=== PATIENT | male | born 1975 | race Caucasian/White ===

== ENCOUNTER 2023-05-29 17:01 | Emergency (ER) | payer BC, SELFPAY ==
[2023-05-29 17:04] VITALS: BP 146/97; PULSE 100; RESP 18; TEMP 36.8; O2SAT 96
--- NOTE | 2023-05-29 17:25 | EDS_ITS ---
HPI HPI - Psych History of Present Illness Chief Complaint: Suicidal Detail of Chief Complaint: Patient openly admits he had about 12 beers today. 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 Denies any prior suicide attempts. Denies any prior mental health admissions. States that he openly admits that he had 12 beers today. Said he got mouthy with his . They got an argument. He threatened to harm himself. She called the police. I did speak to our police crime scene technician who spoke with the police today. The patient left out the part that he had a loaded gun pointed at his own head. Patient was brought in by police and pink slipped. Prior similar symptoms: No Recent Illness/Hospitalization: No PFSH PFSH Medical History Anxiety HTN (hypertension) Home Medications bupropion HCl 300 mg 24 hr tablet, extended release 300 mg PO DAILY 05/29/23 [History Last Taken Unknown] lisinopril 20 mg-hydrochlorothiazide 12.5 mg tablet 1 tab PO DAILY 05/29/23 [History Last Taken 05/29/23] meloxicam .ROUTE 05/29/23 [History Last Taken 05/29/23] Allergy/AdvReac Type Severity Reaction Status Date / Time No Known Allergies Allergy Verified 05/29/23 17:11 Social History Smoking Status: Current every day smoker tobacco type: cigarettes ROS ROS ED ROS Narrative Denies recent illness. Review of Systems ROS Unobtainable: Denies due to encephalopathy Constitutional Constitutional ED: Denies chills or fever(s) Eyes Eyes: Denies blurry vision ENT ENT ED: Denies ear pain Cardiovascular Cardiovascular: Denies chest pain Respiratory/Chest Respiratory/Chest: Denies cough Gastrointestinal Gastrointestinal: Denies abdominal pain Genitourinary Genitourinary ED: Denies dysuria Musculoskeletal Musculoskeletal: Denies arthralgias Integumentary Denies abscess Neurologic Neurologic: Denies headache(s) Endocrine Endocrinology: Denies polydipsia Hematologic/Lymphatic Hematologic/Lymphatic: Denies easy bleeding Allergic/Immunologic Allergic/Immunologic ED: Denies mouth swelling EXAM Physical Exam Narrative Exam Narrative: 47-year-old male vital signs stable afebrile. He does not look septic or toxic. He is in no distress. Most likely is intoxicated. H EENT exam unremarkable. Neck nontender. No trauma. No lymphadenopathy. Lungs clear to auscultation bilaterally. Heart regular rhythm no murmur. Rate about 100. Chest wall nontender. Abdomen soft nontender. Moving all 4 extremities. Nontender. No trauma. No track kelley. No lacerations. Back nontender. Neurologically is awake and alert. Answering questions following commands. Currently he is neither verbally abusive nor confrontational. He is not threatening. Const Vital Signs: 05/29/23 17:04 05/29/23 19:02 Temperature 98.3 F Temperature Source Oral Pulse Rate 100 Respiratory Rate 18 18 Blood Pressure 146/97 H Blood Pressure Mean 113 Pulse Ox 96 Oxygen Delivery Method Room Air Room Air Positive well nourished and well developed; Negative for cachectic, contractures or unkempt General Appearance ED: well developed and NAD; Negative for unkempt, cachectic, contractures or pallor Nutritional Appearance: Negative for cachectic HEENT Reports moist mucous membranes normocephalic and atraumatic; Negative for trauma or tenderness Eyes PERRL and EOMs intact bilaterally General Eye ED: Negative for pale conjunctiva or scleral icterus Neck no lymphadenopathy, supple and no JVD General: Negative for tenderness Resp normal respiratory effort and clear to auscultation bilaterally Effort and Inspection: Negative for retractions Auscultation: Negative for rales, rhonchi, wheezes or diminished lung sounds Cardio S1 normal heart sound, S2 normal heart sound and no murmurs Palpation: Negative for other Rate: regular rate Rhythm: regular rhythm GI non-tender, non-distended and no masses Auscultation: normoactive bowel sounds Palpation: soft; Negative for tender or guarding Back/Spine no CVA tenderness General Back: Negative for CVA tenderness Cervical Spine: Negative for cervical spine tenderness Thoracic Spine / Upper Back: Negative for thoracic spinal tenderness Lumbar Spine / Lower Back: Negative for lumbar spinal tenderness Coccyx: Negative for other Extremity normal to inspection General Extremety ED: Negative for edema or tenderness General Extremity: Negative for edema Neuro oriented x3 and CN's II-XII intact bilaterally Sensorium / Orientation: alert, oriented to person, oriented to place and oriented to time; Negative for orientation impaired, confused, lethargic or sabrina porous Motor Exam: strength 5/5 throughout Psych mental status grossly normal, cooperative, affect normal and speech normal Appearance: grossly normal; Negative for unkempt Attitude: calm, engaged, No paranoid, No withdrawn, No bizarre, No uncooperative, No evasive, No guarded, No belligerent, No agitated, No aggressive and No hostile Activity / Motor Behavior: appropriate eye contact Speech: normal speech Mood & Affect: euthymic mood Thought Process: normal thought process Thought Content: normal thought content Attention / Concentration: attention grossly intact Memory / Cognition: memory grossly intact Insight: insight good Judgement: judgement good Skin General Skin Exam: Negative for jaundice or pallor Lesions: no lesions Rashes: no rashes Trauma: Negative for abrasion Wounds: Negative for amputation MDM MDM MDM Narrative Medical decision making narrative: 47-year-old male drinking today and pointed a loaded gun to his own head. His brought in by police under pink slip. He will go through a ED mental health evaluation. Repeat exam patient doing well at 7:39 PM. The alcohol level at the come down he will remain in the emergency department overnight. He will be assessed by crisis tomorrow. History & Record Review Discussion w/independent historian: Patient Lab Data Attestation: I reviewed the patient's lab results. Lab results narrative: CBC shows a white count 5.6. H&H of 14 and 40. Platelets 222. Electrolytes show sodium 133. Gap of 8. Normal BUN of 12 and creatinine 0.7. Glucose 101. Tox screen is positive only for cannabis. Blood alcohol level is 302. Labs: Laboratory Results - last 24 hr 05/29/23 18:01 WBC 5.6 RBC 4.55 L Hgb 14.3 Hct 40.4 MCV 88.8 MCH 31.4 MCHC 35.4 RDW Std Deviation 42.0 RDW Coeff of Gloria 12.8 Plt Count 222 MPV 8.4 Immature Gran % (Auto) 0.200 Neut % (Auto) 54.4 Lymph % (Auto) 34.8 [place] % (Auto) 7.1 Eos % (Auto) 2.3 Baso % (Auto) 1.2 H Absolute Neuts (auto) 3.1 Absolute Lymphs (auto) 1.96 Nucleated RBC % 0 Sodium 133 L Potassium 4.0 Chloride 100 Carbon Dioxide 25.0 Anion Gap 8 BUN 12 Creatinine 0.77 Est GFR (MDRD) Af Amer 138 Est GFR (MDRD) Non-Af 114 BUN/Creatinine Ratio 15.6 Glucose 101 Calcium 9.0 Urine Opiates Screen NEGATIVE Urine Methadone Screen NEGATIVE Ur Barbiturates Screen NEGATIVE Ur Phencyclidine Scrn NEGATIVE Ur Amphetamines Screen NEGATIVE MDMA (Ecstasy) Screen NEGATIVE U Benzodiazepines Scrn NEGATIVE Urine Cocaine Screen NEGATIVE U Cannabinoids Screen POSITIVE H Ur Drug Screen Comment Ethyl Alcohol 302.0 H* Discharge Plan Triage Chief Complaint: Suicidal ED Provider: Joey Shepard Dx/Rx/DC Orders Clinical Impression: Depression with suicidal ideation, Depression, History of hypertension Prescriptions: No Action lisinopril-hydrochlorothiazide 20-12.5 mg tablet 1 tab PO DAILY bupropion HCl 300 mg tablet extended release 24 hr 300 mg PO DAILY meloxicam .ROUTE Primary Care Provider: Gustavo Flor Referrals: Gustavo Flor MD [Primary Care Provider] -
[2023-05-29 18:09] LABS: Absolute Lymphocyte Count 1.96 X10^3/uL (0.83-4.51); Absolute Neutrophil Count 3.1 X10^3/uL (2.0-7.7); Basophil# 0.07 X10^3/uL; Basophil% 1.2 % (0-1); Eosinophil# 0.13 X10^3/uL; Eosinophils% 2.3 % (0-5); Hematocrit 40.4 % (40-54); Hemoglobin 14.3 g/dL (13.0-16.5); Lymphocyte # 1.96 X10^3/ul (0.83-4.51); Lymphocyte % 34.8 % (19-41); Mean Corp Hgb Conc 35.4 g/dL (32-36); Mean Corpuscular Hgb 31.4 pg (27.0-32.0); Mean Corpuscular Volume 88.8 fL (80-94); Mean Platelet Vol. 8.4 fl (6.2-12.0); Monocyte% 7.1 % (0-10); NRBC Flagged by Analyzer 0 % (0-5); Neutrophil # 3.07 X10^3/uL (2.7-7.7); Neutrophil % 54.4 % (47-70); Platelet Count 222 K/mm3 (150-450); RBC Distribution Width CV 12.8 % (11.6-14.6); Red Blood Count 4.55 M/mm3 (4.6-6.2); White Blood Count 5.6 K/mm3 (4.4-11.0)
[2023-05-29 18:32] LABS: Amphetamine Urine VISTA NEGATIVE (<1000 ng/mL); Barbiturate Urine VISTA NEGATIVE (< 200 ng/mL); Benzodiazepine Urine VISTA NEGATIVE (< 200 ng/mL); Cocaine Urine VISTA NEGATIVE (< 300 ng/mL); Ecstacy Urine VISTA NEGATIVE (< 500 ng/mL); Methadone Urine VISTA NEGATIVE (< 300 ng/mL); PCP Urine VISTA NEGATIVE (< 25 ng/mL); THC Urine VISTA POSITIVE (< 50 ng/mL); Vista UDS pH Range 6
[2023-05-29 18:43] LABS: Anion Gap 8 (5-15); BUN 12 mg/dL (7-18); BUN/Creat Ratio 15.6 RATIO (10-20); Chloride 100 mmol/L (98-107); Creatinine, Serum 0.77 mg/dL (0.70-1.30); EST Glomerular Filtration Rate 114 mL/min (>60); Est Glom Filt Rate - Afr Amer 138 mL/min (>60); Glucose 101 mg/dL (74-106); Sodium Level 133 mmol/L (136-145)
[2023-05-29 19:02] VITALS: RESP 18
[2023-05-29 20:00] VITALS: RESP 16
[2023-05-29 21:00] VITALS: RESP 16
[2023-05-29 22:00] VITALS: RESP 16
[2023-05-29 23:00] VITALS: RESP 16
[2023-05-30] VITALS (7 sets, daily range): BP systolic 135–139; BP diastolic 99–100; PULSE 96–100; RESP 14–18; O2SAT 98–99; BMI 32.3
== END 2023-05-30 10:50 | disposition home or self-care (01) ==
PROVIDERS: Emergency Provider Emergency Medicine; PCP Family Medicine; Visit Provider Emergency Medicine
DX: F32.A Depression, unspecified (principal); R45.851 Suicidal ideations; I10 Essential (primary) hypertension; F41.9 Anxiety disorder, unspecified; F10.10 Alcohol abuse, uncomplicated; Y90.8 Blood alcohol level of 240 mg/100 ml or more; F17.210 Nicotine dependence, cigarettes, uncomplicated; Z79.899 Other long term (current) drug therapy
CPT/HCPCS: 80048; 80307; 82077; 85025; 99285

== ENCOUNTER 2023-08-18 05:29 | Emergency (ER) | payer BC, SELFPAY ==
[2023-08-18 05:30] VITALS: BP 184/104; PULSE 94; RESP 15; TEMP 36; O2SAT 98; BMI 34.2
--- NOTE | 2023-08-18 06:10 | CT_ITS ---
EXAM: CT ABDOMEN AND PELVIS WITH INTRAVENOUS CONTRAST CLINICAL INDICATION: abdominal trauma-RIGHT POSTERIOR RIB PAIN FROM FALL 1 WEEK AGO TECHNIQUE: Helically acquired images were obtained of the abdomen and pelvis with intravenous contrast. This CT exam was performed using one or more of the following dose reduction techniques: automated exposure control, adjustment of the mA and/or kV according to patient size, and/or use of iterative reconstruction technique. CONTRAST: IV 100mL Isovue-300 RADIATION DOSE: CTDIvol = 15.34 mGy, DLP = 1423.21 mGy-cm. COMPARISON: No relevant prior studies available. FINDINGS: LOWER THORAX: See below. ABDOMEN: LIVER: Low-attenuation mildly fatty-appearing liver, the right lobe is mildly enlarged at 19.3 cm in length. GALLBLADDER AND BILE DUCTS: Unremarkable. No calcified gallstones. No gallbladder distention or wall edema. No intra- or extrahepatic biliary ductal dilation. PANCREAS: Unremarkable. No focal cystic or solid mass. SPLEEN: Unremarkable. Normal size without focal cystic or solid mass. ADRENALS: Unremarkable. No nodules. KIDNEYS AND URETERS: Unremarkable. Normal renal size and position. No hydronephrosis. STOMACH AND BOWEL: Mild gas stomach. Mildly prominent gas and fluid in small bowel loops. Moderate stool in the right colon and hepatic flexure. Minimal gas and collapse segments involving transverse colon. Mild gas and stool in the distal colon. No stomach or bowel distention. No focal inflammatory change. PELVIS: APPENDIX: No evidence of acute appendicitis. BLADDER: Mildly thick-walled urinary bladder but it is minimally distended. REPRODUCTIVE: Unremarkable as visualized. No mass. ABDOMEN and PELVIS: INTRAPERITONEAL SPACE: Unremarkable. No ascites or other fluid collection. No free air. BONES/JOINTS: Minimally displaced fractures of right posterior eighth through 10th posterior ribs are included with mild adjacent pleural thickening and minimal slightly hyperdense fluid. No pneumothorax anteriorly at the lung bases. Normal heart size. Degenerative spine changes decreased height and irregular anterior-superior margin at L3 with a sclerotic horizontal line the upper anterior to mid body, presumably subacute chronic fracture. No significant retropulsion or spinal stenosis. SOFT TISSUES: Unremarkable. No discrete abdominal or pelvic wall hernia. VASCULATURE: Unremarkable. Abdominal aorta is non-dilated. LYMPH NODES: Unremarkable. No enlarged lymph nodes. CT/Abdomen/Pelvis W IV Cont ONLY IMPRESSION: 1. Minimally displaced fractures of multiple right posterior ribs. Adjacent pleural thickening and slight suspected hemothorax. No pneumothorax of the lung bases. 2. No solid organ laceration or other specific acute intra-abdominal or intrapelvic abnormality. 3. Estimated subacute to chronic-appearing fracture of L3. Electronically Signed: Parisa Pedersen MD at 7:40 EDT ,
[2023-08-18 06:30] LABS: Absolute Lymphocyte Count 1.79 X10^3/uL (0.83-4.51); Absolute Neutrophil Count 2.9 X10^3/uL (2.0-7.7); Basophil# 0.06 X10^3/uL; Basophil% 1.1 % (0-1); Eosinophil# 0.19 X10^3/uL; Eosinophils% 3.4 % (0-5); Hematocrit 42.4 % (40-54); Hemoglobin 14.3 g/dL (13.0-16.5); Lymphocyte # 1.79 X10^3/ul (0.83-4.51); Lymphocyte % 31.9 % (19-41); Mean Corp Hgb Conc 33.7 g/dL (32-36); Mean Corpuscular Hgb 31.1 pg (27.0-32.0); Mean Corpuscular Volume 92.2 fL (80-94); Mean Platelet Vol. 8.4 fl (6.2-12.0); Monocyte# 0.63 X10^3/uL; Monocyte% 11.2 % (0-10); NRBC Flagged by Analyzer 0 % (0-5); Neutrophil # 2.93 X10^3/uL (2.7-7.7); Platelet Count 270 K/mm3 (150-450); RBC Distribution Width CV 12.4 % (11.6-14.6); RBC Distribution Width SD 41.9 fl (35.1-43.9); White Blood Count 5.6 K/mm3 (4.4-11.0)
--- NOTE | 2023-08-18 06:33 | EX.ED.GENINJ ---
HPI History of Present Illness Chief Complaint: Other, Pain/Inj Informant: patient Narrative Narrative: 47-year-old male presenting to the emergency room with right sided abdominal and chest wall pain in addition to constipation. Patient fell 1 week ago going on the stairs. He injured his right flank right mid axillary chest and abdomen. He states is progressively worsened. He notes for the past 3 days he has not had a very good bowel movement. He is took some Dulcolax with no relief. He denies any hematuria. He denies vomiting. He states the right mid axillary lower abdominal wall feels swollen. He notes pain over the anterior mid axillary lower right ribs. [facility] Medical History Anxiety HTN (hypertension) Home Medications bupropion HCl 300 mg 24 hr tablet, extended release 300 mg PO DAILY 05/29/23 [History Last Taken Unknown] lisinopril 20 mg-hydrochlorothiazide 12.5 mg tablet 1 tab PO DAILY 05/29/23 [History Last Taken 05/29/23] sour espinal extract 1,000 mg capsule (Tart Espinal Extract) 1,200 mg PO DAILY gout 05/30/23 [History Last Taken Unknown] oxycodone-acetaminophen 5 mg-325 mg tablet 1 tab PO Q6H PRN PRN Pain 3 days #12 TABLETS 08/18/23 [Rx Last Taken Unknown] Allergy/AdvReac Type Severity Reaction Status Date / Time No Known Allergies Allergy Verified 08/18/23 05:39 Social History Smoking Status: Current every day smoker tobacco type: cigarettes ROS ROS ED Constitutional Constitutional ED: Denies chills or weight loss Eyes Eyes: Denies change in vision or diplopia ENT ENT ED: Denies ear pain, rhinorrhea or sore throat Cardiovascular Cardiovascular: Reports chest pain; Denies orthopnea, palpitations or racing heartbeat Respiratory/Chest Respiratory/Chest: Denies cough, dyspnea or orthopnea Gastrointestinal Gastrointestinal: Reports abdominal pain and constipation; Denies diarrhea, nausea or vomiting Genitourinary Genitourinary ED: Denies dysuria, hematuria or urinary frequency Musculoskeletal Musculoskeletal: Reports back pain; Denies arthralgias or myalgias Integumentary Denies abscess or rash Neurologic Neurologic: Denies headache(s) or weakness Psychiatric Psychiatric: Denies anxiety, depression, suicidal ideation or suicidal thoughts Endocrine Endocrinology: Denies polydipsia, polyphagia or polyuria Allergic/Immunologic Allergic/Immunologic ED: Denies mouth swelling, tongue swelling or urticaria EXAM Physical Exam Const Vital Signs: 08/18/23 05:30 08/18/23 05:37 Temperature 96.8 F L Temperature Source Temporal Pulse Rate 94 Respiratory Rate 15 Respiratory Effort Normal Respiratory Pattern Normal Blood Pressure 184/104 H Blood Pressure Mean 130 Pulse Ox 98 Oxygen Delivery Method Room Air Positive well nourished and well developed General Appearance ED: well developed HEENT Reports normocephalic, head/scalp atraumatic and moist mucous membranes Eyes PERRL and EOMs intact bilaterally Neck no lymphadenopathy, supple and no JVD Chest Wall Chest Narrative: Patient has tenderness palpation over the lower right mid axillary ribs. There is no crepitance or deformity noted. No ecchymosis noted Resp normal respiratory effort and clear to auscultation bilaterally Cardio regular rate, regular rhythm and no murmurs GI GI Narrative: Is tender to palpation of the right side of the abdomen. I do not palpate any hematomas appreciated ecchymosis. Palpation: soft Back/Spine no CVA tenderness and normal ROM Back/Spine Narrative: Patient has tenderness to palpation in the right posterior thoracic ribs Extremity normal to inspection General Extremety ED: Negative for edema General Extremity: Negative for edema Neuro oriented x3 and CN's II-XII intact bilaterally Sensorium / Orientation: alert Motor Exam: strength 5/5 throughout Psych mental status grossly normal Mood & Affect: Negative for depressed or tearful Skin no rashes or lesions noted and no wounds MDM MDM MDM Narrative Medical decision making narrative: Basic blood work is neck due to. Also negative. CT of the abdomen pelvis demonstrates 3 rib fractures posteriorly on the right. There is no obvious pneumothorax liver or renal injury. There is also noted to be a subacute L3 fracture. Given that he has not had any recent falls other than one last week this is most likely related to the fall. Patient does not have a significant amount of stool. There are no inflammatory changes around the bowel. Patient was advised that he does not have a whole lot of stool but most of the stool is on the right side of his abdomen where he is feeling bloated. Patient should continue stool softener drink plenty of fluids. I would increase activity as pain dictates. He should trial some magnesium citrate if no bowel movement in 2 to 3 days. Return if worsening or concerns Lab Data Attestation: I reviewed the patient's lab results. Labs: Laboratory Results - last 24 hr 08/18/23 08/18/23 06:23 06:48 WBC 5.6 RBC 4.60 Hgb 14.3 Hct 42.4 MCV 92.2 MCH 31.1 MCHC 33.7 RDW Std Deviation 41.9 RDW Coeff of Gloria 12.4 Plt Count 270 MPV 8.4 Immature Gran % (Auto) 0.400 Neut % (Auto) 52.0 Lymph % (Auto) 31.9 [place] % (Auto) 11.2 H Eos % (Auto) 3.4 Baso % (Auto) 1.1 H Absolute Neuts (auto) 2.9 Absolute Lymphs (auto) 1.79 Nucleated RBC % 0 Sodium 134 L Potassium 4.3 Chloride 103 Carbon Dioxide 27.0 Anion Gap 4 L BUN 13 Creatinine 0.81 Estim Creat Clear Calc 117.49 Est GFR (MDRD) Af Amer 130 Est GFR (MDRD) Non-Af 108 BUN/Creatinine Ratio 16.1 Glucose 114 H Calcium 9.6 Total Bilirubin 0.30 AST 44 H ALT 63 H Alkaline Phosphatase 57 Total Protein 7.6 Albumin 3.8 Globulin 3.8 Albumin/Globulin Ratio 1.0 Urine Color Yellow Urine Clarity Clear Urine pH 6.5 Ur Specific [place] 1.010 Urine Protein Negative Urine Glucose (UA) Normal Urine Ketones Negative Urine Occult Blood Negative Urine Nitrite Negative Urine Bilirubin Negative Urine Urobilinogen Normal Ur Leukocyte Esterase Negative Urine RBC 0 SEEN Urine WBC 0 SEEN Ur Squamous Epith Cells 0 SEEN Urine Bacteria 0 SEEN Urine Mucus 0 SEEN Radiography Diagnostic Testing: Clinical Impression(s) from Imaging Studies Abdomen/Pelvis CT 08/18/23 06:10 IMPRESSION: 1. Minimally displaced fractures of multiple right posterior ribs. Adjacent pleural thickening and slight suspected hemothorax. No pneumothorax of the lung bases. 2. No solid organ laceration or other specific acute intra-abdominal or intrapelvic abnormality. 3. Estimated subacute to chronic-appearing fracture of L3. Electronically Signed: Parisa Pedersen MD at 7:40 EDT , Discharge Plan Triage Chief Complaint: Other, Pain/Inj ED Provider: Gustavo Foss Dx/Rx/DC Orders Clinical Impression: Multiple fractures of ribs of right side, Acute constipation, Closed L3 vertebral fracture, Fall Instructions: ED Constipation (Adult), ED Rib Fracture Prescriptions: New oxycodone-acetaminophen [oxycodone-acetaminophen] 5-325 mg tablet 1 tab PO Q6H PRN PRN (Reason: Pain) 3 Days Qty: 12 0RF No Action lisinopril-hydrochlorothiazide 20-12.5 mg tablet 1 tab PO DAILY bupropion HCl 300 mg tablet extended release 24 hr 300 mg PO DAILY Tart Espinal Extract 1,000 mg capsule 1,200 mg PO DAILY Primary Care Provider: Gustavo Flor Referrals: Gustavo Flor MD [Primary Care Provider] - As Needed Activity Restrictions/Additional Instructions: Continue taking the stool softener at least once or twice per day Drink plenty of fluids to stay hydrated (light yellow to clear urine) Activity will improve your constipation If no bowel movement in the next several days I would drink 1 or 2 bottles of magnesium citrate. Disposition Disposition: Home, Self Care
[2023-08-18 06:52] LABS: AST(SGOT) 44 U/L (15-37); Alanine Aminotransfer ALT/SGPT 63 U/L (16-61); Albumin, Serum 3.8 g/dL (3.2-5.0); Alkaline Phosphatase 57 U/L (45-117); Anion Gap 4 (5-15); BUN 13 mg/dL (7-18); BUN/Creat Ratio 16.1 RATIO (10-20); Calcium,Total 9.6 mg/dL (8.5-10.1); Chloride 103 mmol/L (98-107); Creatinine, Serum 0.81 mg/dL (0.70-1.30); EST Glomerular Filtration Rate 108 mL/min (>60); Est Glom Filt Rate - Afr Amer 130 mL/min (>60); Estimated Creatinine Clearance 117.49 ml/min; Globulin 3.8 g/dL (2.2-4.2); Glucose 114 mg/dL (74-106); Potassium 4.3 mmol/L (3.5-5.1); Protein, Total 7.6 g/dL (6.4-8.2); Sodium Level 134 mmol/L (136-145)
[2023-08-18 06:54] LABS: Bacteria 0 SEEN /hpf (None Seen); Color, Urine Yellow (Yellow); Glucose, Dipstick Normal (Normal); Ketone-Dipstick Negative (Negative); Leukocyte Esterase-Dipstick Negative /ul (Negative); Mucous, Urine 0 SEEN /hpf (<or=2+); Nitrite-Dipstick Negative (Negative); Occult Blood-Urine Negative /ul (Negative); Protein-Dipstick Negative (Negative); Red Blood Cells-Urine 0 SEEN /hpf (0-5); Squamous Epithelial Cells - UA 0 SEEN /hpf (0-5); Urine Bilirubin Dipstick Negative (Negative); Urine Clarity Clear (Clear); Urine Urobilinogen Normal (Normal); Urine pH 6.5 (5.0 - 8.0); White Blood Cells 0 SEEN /hpf (0-5)
[2023-08-18 07:55] VITALS: BP 108/77; PULSE 68; RESP 15; O2SAT 99
== END 2023-08-18 07:56 | disposition home or self-care (01) ==
PROVIDERS: Emergency Provider Emergency Medicine; PCP Family Medicine; Visit Provider Emergency Medicine
DX: S22.41XA Multiple fractures of ribs, right side, initial encounter for closed fracture (principal); S32.039A Unspecified fracture of third lumbar vertebra, initial encounter for closed fracture; W10.9XXA Fall (on) (from) unspecified stairs and steps, initial encounter; K59.00 Constipation, unspecified; I10 Essential (primary) hypertension; F17.210 Nicotine dependence, cigarettes, uncomplicated
CPT/HCPCS: 74177; 80053; 81001; 85025; 99282; Q9967; A4216

== ENCOUNTER 2025-07-13 04:45 | Emergency (ER) | payer BC, SELFPAY ==
[2025-07-13 04:46] VITALS: BP 165/102; PULSE 102; RESP 16; TEMP 36.9; O2SAT 99; BMI 38.7
[2025-07-13 04:48] VITALS: BP 165/102; PULSE 102; RESP 16; TEMP 36.9; O2SAT 99
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
--- OUTSIDE RECORDS SUMMARY | 2025-07-13 05:16 | XMS RPT_ITS | CCD ---
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 Normal >60 [facility] Comment on above: Result Comment: Afri can [place] GFR Calc Performed By: #### L 500.4050, L100.0100 #### [facility] [address] [place], [address] GAP 4 Low 5-15 [facility] Comment on above: Performed By: #### L 500.4050, L100.0100 #### [facility] [address] [place], [address] GFR/1.73 sq M.predicted among non-blacks MDRD (S/P/Bld) [Vol rate/Area] 108 mL/min/{1.73_m2} Normal >60 [facility] Comment on above: Result Comment: Non- GFR Calc Performed By: #### L 500.4050, L100.0100 #### [facility] [address] [place], [address] Globulin (S) [Mass/Vol] 3.8 g/dL Normal 2.2-4.2 [facility] Comment on above: Performed By: #### L 500.4050, L100.0100 #### [facility] [address] [place], [address] Glucose [Mass/Vol] 114 mg/dL High 74-106 [facility] Comment on above: Result Comment: Fast ing Glucose result from 100 to 125 mg/dL suggests IMPAIRED HOMEOSTASIS per A.D.A. criteria. Performed By: #### L 500.4050, L100.0100 #### [facility] [address] [place], [address] Potassium [Moles/Vol] 4.3 mmol/L Normal 3.5-5.1 [facility] Comment on above: Performed By: #### L 500.4050, L100.0100 #### [facility] [address] [place], [address] Sodium [Moles/Vol] 134 mmol/L Low 136-145 [facility] Comment on above: Performed By: #### L 500.4050, L100.0100 #### [facility] [address] [place], [address] T PROT 7.6 g/dL Normal 6.4-8.2 [facility] Comment on above: Performed By: #### L 500.4050, L100.0100 #### [facility] [address] [place], [address] Urea nitrogen [Mass/Vol] 13 mg/dL Normal 7-18 [facility] Comment on above: Performed By: #### L 500.4050, L100.0100 #### [facility] [address] [place], [address] Emergency Department Summary on 08-18-2023 Emergency Department Summary [facility] Medical Records Department [address] [place] [address] Emergency Department Summary 08/18/23 MR#: [id number] Acct: [id number] Name: YEYO RUGGIERO Rep #: [id number] : 1975 47 From: Gustavo Foss DO PCP: Dr. Gustavo Hedrick MD Status:DEP ER Location: ED HPI History of Present Illness Chief Complaint: Other, Pain/Inj Informant: patient Narrative Narrative: 47-year-old male presenting to the emergency room with right sided abdominal and chest wall pain in addition to constipation. Patient fell 1 week ago going on the stairs. He injured his right flank right mid axillary chest and abdomen. He states is progressively worsened. He notes for the past 3 days he has not had a very good bowel movement. He is took some Dulcolax with no relief. He denies any hematuria. He denies vomiting. He states the right mid axillary lower abdominal wall feels swollen. He notes pain over the anterior mid axillary lower right ribs. PFSH [facility] Medical History Anxiety HTN (hypertension) Home Medications bupropion HCl 300 mg 24 hr tablet, extended release 300 mg PO DAILY 05/29/23 [History Last Taken Unknown] lisinopril 20 mg-hydrochlorothiazide 12.5 mg tablet 1 tab PO DAILY 05/29/23 [History Last Taken 05/29/23] sour mora extract 1,000 mg capsule (Tart Mora Extract) 1,200 mg PO DAILY gout 05/30/23 [History Last Taken Unknown] oxycodone-acetaminophen 5 mg-325 mg tablet 1 tab PO Q6H PRN PRN Pain 3 days #12 TABLETS 08/18/23 [Rx Last Taken Unknown] Allergy/AdvReac Type Severity Reaction Status Date / Time No Known Allergies Allergy Verified 08/18/23 05:39 Social History Smoking Status: Current every day smoker tobacco type: cigarettes ROS ROS ED Constitutional Constitutional ED: Denies chills or weight loss Eyes Eyes: Denies change in vision or diplopia ENT ENT ED: Denies ear pain, rhinorrhea or sore throat Cardiovascular Cardiovascular: Reports chest pain; Denies orthopnea, palpitations or racing heartbeat Respiratory/Chest Respiratory/Chest: Denies cough, dyspnea or orthopnea Gastrointestinal Gastrointestinal: Reports abdominal pain and constipation; Denies diarrhea, nausea or vomiting Genitourinary Genitourinary ED: Denies dysuria, hematuria or urinary frequency Musculoskeletal Musculoskeletal: Reports back pain; Denies arthralgias or myalgias Integumentary Denies abscess or rash Neurologic Neurologic: Denies headache(s) or weakness Psychiatric Psychiatric: Denies anxiety, depression, suicidal ideation or suicidal thoughts Endocrine Endocrinology: Denies polydipsia, polyphagia or polyuria Allergic/Immunologic Allergic/Immunologic ED: Denies mouth swelling, tongue swelling or urticaria EXAM Physical Exam Const Vital Signs: 08/18/23 05:30 08/18/23 05:37 Temperature 96.8 F L Temperature Source Temporal Pulse Rate 94 Respiratory Rate 15 Respiratory Effort Normal Respiratory Pattern Normal Blood Pressure 184/104 H Blood Pressure Mean 130 Pulse Ox 98 Oxygen Delivery Method Room Air Positive well nourished and well developed General Appearance ED: well developed HEENT Reports normocephalic, head/scalp atraumatic and moist mucous membranes Eyes PERRL and EOMs intact bilaterally Neck no lymphadenopathy, supple and no JVD Chest Wall Chest Narrative: Patient has tenderness palpation over the lower right mid axillary ribs. There is no crepitance or deformity noted. No ecchymosis noted Resp normal respiratory effort and clear to auscultation bilaterally Cardio regular rate, regular rhythm and no murmurs GI GI Narrative: Is tender to palpation of the right side of the abdomen. I do not palpate any hematomas appreciated ecchymosis. Palpation: soft Back/Spine no CVA tenderness and normal ROM Back/Spine Narrative: Patient has tenderness to palpation in the right posterior thoracic ribs Extremity normal to inspection General Extremety ED: Negative for edema General Extremity: Negative for edema Neuro oriented x3 and CN's II-XII intact bilaterally Sensorium / Orientation: alert Motor Exam: strength 5/5 throughout Psych mental status grossly normal Mood Affect: Negative for depressed or tearful Skin no rashes or lesions noted and no wounds MDM MDM MDM Narrative Medical decision making narrative: Basic blood work is neck due to. Also negative. CT of the abdomen pelvis demonstrates 3 rib fractures posteriorly on the right. There is no obvious pneumothorax liver or renal injury. There is also noted to be a subacute L3 fracture. Given that he has not had any recent falls other than one last week this is most likely related to the fall. Patient does not baxter (more content not included)... Normal [facility] Urinalysis, Completeon 08-18 BACTERIA 0 SEEN Normal None Seen [facility] Comment on above: Order Comment: JULIO CTOR TO SPECIFY Performed By: #### L 400.0001 #### [facility] [address] [place], [address] EPI,SQUAMOUS 0 SEEN Normal 0-5 [facility] Comment on above: Order Comment: JULIO CTOR TO SPECIFY Performed By: #### L 400.0001 #### [facility] [address] [place], [address] Mucus Ql (Urine sed) 0 SEEN Normal [facility] Comment on above: Order Comment: JULIO CTOR TO SPECIFY Performed By: #### L 400.0001 #### [facility] [address] [place], [address] RBC 0 SEEN Normal 0-5 [facility] Comment on above: Order Comment: JULIO CTOR TO SPECIFY Performed By: #### L 400.0001 #### [facility] [address] [place], [address] WBC 0 SEEN Normal 0-5 [facility] Comment on above: Order Comment: JULIO CTOR TO SPECIFY Performed By: #### L 400.0001 #### [facility] [address] [place], [address] Alcohol, Blood (Medical)-Ser umon 05-30-2023 SERUM ETOH 33.0 mg/dL Normal [facility] Comment on above: Order Comment: Redra w at 8:00 a.m. on 05/30/23 Result Comment: The serum:whole blood ethanol ratio is approximately 1.14 and varies slightly with hematocrit. Medical Alcohol reference interval and critical value in non-tolerant individuals; 50 - 100 Impairment 100 Intoxication 100 - 250 Severe Poisoning 250 - 400 Deep/possible fatal coma Performed By: #### L 501.9100 #### [facility] [address] [place], [place], [id number] No Panel InformationOrdered By: Joey Shepard on 05-30-2023 Ethyl Alcohol Level 33.0 mg/dL [facility] Comment on above: The serum:whole bloo d ethanol ratio is approximately 1.14and varies slightly with hematocrit. Medical Alcohol reference interval and critical value innon-tolerant individuals; 50 - 100 Impairment 100 Intoxication 100 - 250 Severe Poisoning 250 - 400 Deep/possible fatal coma Absolute lymphocyte countOrd ered By: Joey Shepard on 05-29-2023 Lymphocytes Auto (Unsp spec) [#/Vol] 1.96 10*3/uL 0.83-4.51 [facility] Alcohol, Blood (Medical)-Ser umon 05-29-2023 SERUM ETOH 302.0 mg/dL Invalid Interpretation Code [facility] Comment on above: Result Comment: Crit ical Result(s) Called at: 19:20:16 05/29/2023 by: Susna Gupta to [facility]. Results read back by same. The serum:whole blood ethanol ratio is approximately 1.14 and varies slightly with hematocrit. Medical Alcohol reference interval and critical value in non-tolerant individuals; 50 - 100 Impairment 100 Intoxication 100 - 250 Severe Poisoning 250 - 400 Deep/possible fatal coma Performed By: #### L 501.9100, L500.2500, L505.5000, L100.0100 ####[facility] [address] [place], [place], [id number] Basic Metabolic Profile (BMP )on 05-29-2023 BUN/CRE 15.6 RATIO Normal 10-20 [facility] Comment on above: Performed By: #### L 501.9100, L500.2500, L505.5000, L100.0100 #### [facility] [address] [place], [address] CA,Total 9.0 mg/dL Normal 8.5-10.1 [facility] Comment on above: Performed By: #### L 501.9100, L500.2500, L505.5000, L100.0100 #### [facility] [address] [place], [address] Chloride [Moles/Vol] 100 mmol/L Normal 98-107 [facility] Comment on above: Performed By: #### L 501.9100, L500.2500, L505.5000, L100.0100 #### [facility] [address] [place], [address] CO2 [Moles/Vol] 25.0 mmol/L Normal 21.0-32.0 [facility] Comment on above: Performed By: #### L 501.9100, L500.2500, L505.5000, L100.0100 #### [facility] [address] [place], [address] Creatinine [Mass/Vol] 0.77 mg/dL Normal 0.70-1.30 [facility] Comment on above: Result Comment: The validity of the calculated GFR GFRAA in patients over 70 years has not been determined. Clinical correlation is essential. Performed By: #### L 501.9100, L500.2500, L505.5000, L100.0100 #### [facility] [address] [place], [address] EST GFR - AA 138 mL/min Normal >60 [facility] Comment on above: Result Comment: Afri can [place] GFR Calc Performed By: #### L 501.9100, L500.2500, L505.5000, L100.0100 #### [facility] [address] [place], [address] GAP 8 Normal 5-15 [facility] Comment on above: Performed By: #### L 501.9100, L500.2500, L505.5000, L100.0100 #### [facility] [address] [place], [address] GFR/1.73 sq M.predicted among non-blacks MDRD (S/P/Bld) [Vol rate/Area] 114 mL/min/{1.73_m2} Normal >60 [facility] Comment on above: Result Comment: Non- GFR Calc Performed By: #### L 501.9100, L500.2500, L505.5000, L100.0100 #### [facility] [address] [place], [address] Glucose [Mass/Vol] 101 mg/dL Normal 74-106 [facility] Comment on above: Result Comment: Fast ing Glucose result from 100 to 125 mg/dL suggests IMPAIRED HOMEOSTASIS per A.D.A. criteria. Performed By: #### L 501.9100, L500.2500, L505.5000, L100.0100 #### [facility] [address] [place], [address] Potassium [Moles/Vol] 4.0 mmol/L Normal 3.5-5.1 [facility] Comment on above: Performed By: #### L 501.9100, L500.2500, L505.5000, L100.0100 #### [facility] [address] [place], [address] Sodium [Moles/Vol] 133 mmol/L Low 136-145 [facility] Comment on above: Performed By: #### L 501.9100, L500.2500, L505.5000, L100.0100 #### [facility] [address] [place], [address] Urea nitrogen [Mass/Vol] 12 mg/dL Normal 7-18 [facility] Comment on above: Performed By: #### L 501.9100, L500.2500, L505.5000, L100.0100 #### [facility] [address] [place], [address] Basophil percentageOrdered B y: Joey Shepard on 05-29-2023 Basophils/100 WBC (Bld) 1.2 % 0-1 [facility] Chloride [Moles/Vol] 100 mmol/L 98-107 [facility] Eosinophils/100 WBC (Bld) 2.3 % 0-5 [facility] Glucose [Mass/Vol] 101 mg/dL 74-106 [facility] Comment on above: Fasting Glucose resu lt from 100 to 125 mg/dL suggests IMPAIRED HOMEOSTASIS per A.D.A. criteria. Neutrophils (Bld) [#/Vol] 3.1 10*3/uL 2.0-7.7 [facility] Neutrophils/100 WBC (Bld) 54.4 % 47-70 [facility] Potassium [Moles/Vol] 4.0 mmol/L 3.5-5.1 [facility] Sodium [Moles/Vol] 133 mmol/L 136-145 [facility] WBC (Bld) [#/Vol] 5.6 10*3/uL 4.4-11.0 [facility] Blood erythrocytes count (nu mber/volume)Ordered By: Joey Shepard on 05-29-2023 RBC (Bld) [#/Vol] 4.55 10*6/uL 4.6-6.2 [facility] Blood hemoglobin measurement (mass/volume)Ordered By: Joey Shepard on 05-29-2023 Hemoglobin (Bld) [Mass/Vol] 14.3 g/dL 13.0-16.5 [facility] Blood lymphocytes/100 leukoc ytesOrdered By: Joey Shepard on 05-29-2023 Lymphocytes/100 WBC (Bld) 34.8 % 19-41 [facility] Blood monocytes/100 leukocyt esOrdered By: Joey Shepard on 05-29-2023 Monocytes/100 WBC (Bld) 7.1 % 0-10 [facility] Blood platelet mean volumeOr dered By: Joey Shepard on 05-29-2023 Platelet mean volume (Bld) [Entitic vol] 8.4 fL 6.2-12.0 [facility] CBC W/Diff, Automatedon 08-0 5-2022 Absolute Lymph 1.96 X10 3/uL Normal 0.83-4.51 [facility] Comment on above: Performed By: #### L 501.9100, L500.2500, L505.5000, L100.0100 #### [facility] [address] [place], [address] Absolute Neut 3.1 X10 3/uL Normal 2.0-7.7 [facility] Comment on above: Performed By: #### L 501.9100, L500.2500, L505.5000, L100.0100 #### [facility] [address] [place], [address] Basophils/100 WBC (Bld) 1.2 % High 0-1 [facility] Comment on above: Performed By: #### L 501.9100, L500.2500, L505.5000, L100.0100 #### [facility] [address] [place], [address] Eosinophils/100 WBC (Bld) 2.3 % Normal 0-5 [facility] Comment on above: Performed By: #### L 501.9100, L500.2500, L505.5000, L100.0100 #### [facility] [address] [place], [address] Erythrocyte distribution width (RBC) [Ratio] 12.8 % Normal 11.6-14.6 [facility] Comment on above: Performed By: #### L 501.9100, L500.2500, L505.5000, L100.0100 #### [facility] [address] [place], [address] Hematocrit (Bld) [Volume fraction] 40.4 % Normal 40-54 [facility] Comment on above: Performed By: #### L 501.9100, L500.2500, L505.5000, L100.0100 #### [facility] [address] [place], [address] Hemoglobin (Bld) [Mass/Vol] 14.3 g/dL Normal 13.0-16.5 [facility] Comment on above: Performed By: #### L 501.9100, L500.2500, L505.5000, L100.0100 #### [facility] [address] [place], [address] IG% 0.200 Normal 0.0-0.9 [facility] Comment on above: Result Comment: IG% - Immature Granulocytes (promyelocytes, myelocytes and metamyelocytes) > 1% indicates that a LEFT SHIFT is Present. Performed By: #### L 501.9100, L500.2500, L505.5000, L100.0100 #### [facility] [address] [place], [address] Lymphocytes/100 WBC (Bld) 34.8 % Normal 19-41 [facility] Comment on above: Performed By: #### L 501.9100, L500.2500, L505.5000, L100.0100 #### [facility] [address] [place], [address] MCH (RBC) [Entitic mass] 31.4 pg Normal 27.0-32.0 [facility] Comment on above: Performed By: #### L 501.9100, L500.2500, L505.5000, L100.0100 #### [facility] [address] [place], [address] MCHC (RBC) [Mass/Vol] 35.4 g/dL Normal 32-36 [facility] Comment on above: Performed By: #### L 501.9100, L500.2500, L505.5000, L100.0100 #### [facility] [address] [place], [address] MCV (RBC) [Entitic vol] 88.8 fL Normal 80-94 [facility] Comment on above: Performed By: #### L 501.9100, L500.2500, L505.5000, L100.0100 #### [facility] [address] [place], [address] Monocytes/100 WBC (Bld) 7.1 % Normal 0-10 [facility] Comment on above: Performed By: #### L 501.9100, L500.2500, L505.5000, L100.0100 #### [facility] [address] [place], [address] Neutrophils/100 WBC (Bld) 54.4 % Normal 47-70 [facility] Comment on above: Performed By: #### L 501.9100, L500.2500, L505.5000, L100.0100 #### [facility] [address] [place], [address] Nucleated RBC (Bld) [#/Vol] 0 10*3/uL Normal 0-5 [facility] Comment on above: Performed By: #### L 501.9100, L500.2500, L505.5000, L100.0100 #### [facility] [address] [place], [address] Platelet mean volume (Bld) [Entitic vol] 8.4 fL Normal 6.2-12.0 [facility] Comment on above: Performed By: #### L 501.9100, L500.2500, L505.5000, L100.0100 #### [facility] [address] [place], [address] Platelets (Bld) [#/Vol] 222 10*3/uL Normal 150-450 [facility] Comment on above: Performed By: #### L 501.9100, L500.2500, L505.5000, L100.0100 #### [facility] [address] [place], [address] RBC (Bld) [#/Vol] 4.55 10*6/uL Low 4.6-6.2 [facility] Comment on above: Performed By: #### L 501.9100, L500.2500, L505.5000, L100.0100 #### [facility] [address] [place], [address] RDW SD 42.0 fl Normal 35.1-43.9 [facility] Comment on above: Performed By: #### L 501.9100, L500.2500, L505.5000, L100.0100 #### [facility] [address] [place], [address] WBC (Bld) [#/Vol] 5.6 10*3/uL Normal 4.4-11.0 [facility] Comment on above: Performed By: #### L 501.9100, L500.2500, L505.5000, L100.0100 #### [facility] [address] [place], [address] Determination of erythrocyte mean corpuscular volume (MCV)Ordered By: Joey Shepard on 05-29-2023 MCV (RBC) [Entitic vol] 88.8 fL 80-94 [facility] Emergency Department Summary on 05-29-2023 Emergency Department Summary [facility] Medical Records Department [address] [place] [address] Emergency Department Summary 05/29/23 MR#: [id number] Acct: [id number] Name: YEYO RUGGIERO Rep #: [id number] : 1975 47 From: Joey Shepard MD PCP: Dr. Gustavo Hedrick MD Status:[facility] ER Location: ED ADDENDUM by Dr. Ta Rodríguez DO on 05/30/23 at 1042 Patient signed out to me pending repeat alcohol level and crisis evaluation. Patient is now sober and his alcohol is 33. He denies any suicidal ideations. Police did take his weapon from his home. Crisis and I agreed patient to be safety planned for home. Family is in agreement. Patient discharged in stable condition 05/30/23 1042 Cosigner Signature (if applicable): cc: Dr. Gustavo Hedrick MD * Signed ADDENDUM by Dr. Kevin Villagran MD on 05/30/23 at 0752 Patient has been watched overnight. There have been no issues. He has been brought in his medicines for blood pressure and Wellbutrin and vitamins. These are brought in in their original containers. We will get him the meds that are due. He is pending repeat alcohol level and evaluation by crisis. 05/30/23 0752 Cosigner Signature (if applicable): cc: Dr. Gustavo Hedrick MD * Signed HPI HPI - Psych History of Present Illness Chief Complaint: Suicidal Detail of Chief Complaint: Patient openly admits he had about 12 beers today. 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 Denies any prior suicide attempts. Denies any prior mental health admissions. States that he openly admits that he had 12 beers today. Said he got mouthy with his . They got an argument. He threatened to harm himself. She called the police. I did speak to our police patrol lieutenant who spoke with the police today. The patient left out the part that he had a loaded gun pointed at his own head. Patient was brought in by police and pink slipped. Prior similar symptoms: No Recent Illness/Hospitalization: No PFSH PFS Medical History Anxiety HTN (hypertension) Home Medications bupropion HCl 300 mg 24 hr tablet, extended release 300 mg PO DAILY 05/29/23 [History Last Taken Unknown] lisinopril 20 mg-hydrochlorothiazide 12.5 mg tablet 1 tab PO DAILY 05/29/23 [History Last Taken 05/29/23] meloxicam .ROUTE 05/29/23 [History Last Taken 05/29/23] Allergy/AdvReac Type Severity Reaction Status Date / Time No Known Allergies Allergy Verified 05/29/23 17:11 Social History Smoking Status: Current every day smoker tobacco type: cigarettes ROS ROS ED ROS Narrative Denies recent illness. Review of Systems ROS Unobtainable: Denies due to encephalopathy Constitutional Constitutional ED: Denies chills or fever(s) Eyes Eyes: Denies blurry vision ENT ENT ED: Denies ear pain Cardiovascular Cardiovascular: Denies chest pain Respiratory/Chest Respiratory/Chest: Denies cough Gastrointestinal Gastrointestinal: Denies abdominal pain Genitourinary Genitourinary ED: Denies dysuria Musculoskeletal Musculoskeletal: Denies arthralgias Integumentary Denies abscess Neurologic Neurologic: Denies headache(s) Endocrine Endocrinology: Denies polydipsia Hematologic/Lymphatic Hematologic/Lymphatic: Denies easy bleeding Allergic/Immunologic Allergic/Immunologic ED: Denies mouth swelling EXAM Physical Exam Narrative Exam Narrative: 47-year-old male vital signs stable afebrile. He does not look septic or toxic. He is in no distress. Most likely is intoxicated. H EENT exam unremarkable. Neck nontender. No trauma. No lymphadenopathy. Lungs clear to auscultation bilaterally. Heart regular rhythm no murmur. Rate about 100. Chest wall nontender. Abdomen soft nontender. Moving all 4 extremities. Nontender. No trauma. No track kelley. No lacerations. Back nontender. Neurologically is awake and alert. Answering questions following commands. Currently he is neither verbally abusive nor confrontational. He is not threatening. Const Vital Signs: 05/29/23 17:04 05/29/23 19:02 Temperature 98.3 F Temperature Source Oral Pulse Rate 100 Respiratory Rate 18 18 Blood Pressure 146/97 H Blood Pressure Mean 113 Pulse Ox 96 Oxygen Delivery Method Room Air Room Air Positive well nourished and well developed; Negative for cachectic, contractures or unkempt General Appearance ED: well developed and NAD; Negative for unkempt, cachectic, contractures or pallor Nut (more content not included)... Normal [facility] Hematocrit Auto (Bld) [Volum e fraction]Ordered By: Joey Shepard on 05-29-2023 Hematocrit (Bld) [Volume fraction] 40.4 % 40-54 [facility] - Chemistry and C hemistry - challengeOrdered By: Joey Shepard on 05-29-2023 CO2 [Moles/Vol] 25.0 mmol/L 21.0-32.0 [facility] Urea nitrogen/Creatinine [Mass ratio] 15.6 mg/mg 10-20 [facility] - Drug toxicology Ordered By: Joey Shepard on 05-29-2023 Amphetamines Ql (U) Negative <1000 ng/mL [facility] Benzodiazepines Ql (U) Negative < 200 ng/mL [facility] Cannabinoids Screen Ql (U) Positive < 50 ng/mL [facility] Cocaine Ql (U) Negative < 300 ng/mL [facility] Opiates Ql (U) Negative < 300 ng/mL [facility] - Hematology and Cell countsOrdered By: Joey Shepard on 05-29-2023 Erythrocyte distribution width (RBC) [Entitic vol] 42.0 fL 35.1-43.9 [facility] Erythrocyte distribution width (RBC) [Ratio] 12.8 % 11.6-14.6 [facility] Immature granulocytes/100 WBC (Bld) 0.200 % 0.0-0.9 [facility] Comment on above: IG% - Immature Granu locytes (promyelocytes, myelocytes and metamyelocytes) > 1% indicates that a LEFT SHIFT is Present. MCH (RBC) [Entitic mass] 31.4 pg 27.0-32.0 [facility] Nucleated RBC/100 WBC (Bld) [Ratio] 0 % 0-5 [facility] MCHC Auto (RBC) [Mass/Vol]Or dered By: Joey Shepard on 05-29-2023 MCHC (RBC) [Mass/Vol] 35.4 g/dL 32-36 [facility] No Panel InformationOrdered By: Joey Shepard on 05-29-2023 Estimated GFR (MDRD) Amer 138 mL/min >60 [facility] Comment on above: GFR Calc Estimated GFR (MDRD) Non-Af Amer 114 mL/min >60 [facility] Comment on above: Non- GFR Calc MDMA (Ecstasy) Screen Negative < 500 ng/mL [facility] Urine Barbiturates Screen Negative < 200 ng/mL [facility] Urine Drug Screen Comment [facility] Comment on above: CONFIRMATORY TESTING FOR ALL POSITIVE URINE DRUG SCREENRESULTS WILL ONLY BE SENT OUT UPON PHYSICIAN ORDER. [facility]IST[facility] Urine Drug Screen methods provide only preliminaryanalytical test results. A more specific alternate chemicalmethod must be used in order to obtain a confirmedanalytical result. Gas chromatography/mass spectrometery(GC/MS) is the preferred confirmatory method. Clinicalconsideration and professional judgement should be appliedto any drug of abuse test result, particularly whenpreliminary positive results are used. URINE TCA TESTING MUST BE ORDERED SEPARATELY. USE TESTMNEMONIC: [facility] Urine Methadone Screen Negative < 300 ng/mL [facility] Platelets bldOrdered By: Deshaun Shepard on 05-29-2023 Platelets (Bld) [#/Vol] 222 10*3/uL 150-450 [facility] Serum or plasma calcium kay urement (mass/volume)Ordered By: Joey Shepard on 05-29-2023 Calcium [Mass/Vol] 9.0 mg/dL 8.5-10.1 [facility] Serum or plasma creatinine m easurement (mass/volume)Ordered By: Joey Shepard on 05-29-2023 Creatinine [Mass/Vol] 0.77 mg/dL 0.70-1.30 [facility]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 left knee 11/25/2016 Elevated liver enzymes Gout 08/07/2020 Hypercholesteremia 01/15/2019 Hyperlipidemia Hypertension Lipoma of neck Obesity Sprain 2019 Tear of meniscus of knee Tendinitis of knee Tennis elbow ALLERGIES: Allergies[1] CURRENT MEDICATIONS: Patient's Medications New Prescriptions PREDNISONE (DELTASONE) 20 MG TABLET Take 60 mg (3 tabs) x 2 days, then 40 mg (2 tabs) x 2 days, then 20 mg (1 tab) x 2 days, then 10 mg (1/2 tab) x 2 days. Take with food. Don't take NSAID meds like ibuprofen or naproxen while taking this med. . Previous Medications C/SOURCHERRY/CELERY/GRAPE SEED (TART MORA ORAL) Take by mouth . EPINEPHRINE (EPIPEN 2-TOMMY) 0.3 MG/0.3 ML ATIN Inject 0.3 mL (0.3 mg total) into the mid-thigh as needed for severe allergic reaction. . LISINOPRIL-HYDROCHLOROTHIAZIDE (PRINZIDE,ZESTORETIC) 20-12.5 MG PER TABLET TAKE 1 TABLET DAILY SILDENAFIL (VIAGRA) 100 MG TABLET Take 1 (one) tablet (100 mg total) by mouth daily as needed for erectile dysfunction . TURMERIC ORAL Take by mouth . Modified Medications No medications on file Discontinued Medications BUPROPION (WELLBUTRIN XL) 300 MG 24 HR TABLET TAKE 1 TABLET DAILY INDOMETHACIN (INDOCIN) 50 MG CAPSULE Take 1 (one) capsule (50 mg total) by mouth daily as needed . SURGICAL HISTORY: Past Surgical History: Procedure Laterality Date SHOULDER SURGERY VASCULAR SURGERY VASECTOMY VESICOSTOMY SOCIAL HISTORY: Social History[2] VITALS: Vitals: 06/05/25 0856 BP: (!) 142/88 BP Location: Right arm Patient Position: Sitting BP Cuff Size: Adult Pulse: 82 Weight: 122.5 kg (270 lb) Height: 5' 11 PHYSICAL EXAM: General: Awake, alert, and in NAD. Obese body habitus. HEENT: Head is grossly atraumatic. Neck: Functional AROM. Respiratory: Non-labored breathing. No conversational dyspnea. Speaks in several word sentences/phrases. Cardiovascular: No cyanosis. Neurological: Oriented to person, place, time and situation. Behavior/interaction appropriate for the setting. Thought processes and judgement are logical. Integumentary: Skin is warm and dry. General musculoskeletal: All four extremities intact. Patient ambulates at a slower pace, Pt indicates being cautious so it doesn't buckle. Gait not particularly antalgic. Gait symmetric. No use of assistive device to aid with ambulation. Can go from sitting to spine and vice versa on his own. Focused musculoskeletal exam: Right knee: Inspection/palpation: -Skin is intact. No erythema, increased warmth, effusion, bruising, induration, muscle or soft tissue atrophy, rash, abrasion or wound. -No bursitis on exam. -Prominent tibial tuberosity when compared to the left and mild swelling in this area. -The following are moderately TTP: tibial tuberosity and patellar tendon. -No palpable crepitus with PROM arc. -Varus stress test at 0 and 30 degrees - no laxity or pain bilaterally. -Valgus stress test at 0 and 30 degrees - no laxity or pain bilaterally. -Ligamentously stable with anterior drawer test, posterior drawer test and Herman test bilaterally. ROM: -Flexion AROM 85 degrees with anterior knee pain, PROM 102 degrees with anterior knee pain, left knee AROM 120 degrees. -Extension is full bilaterally. Strength testing: -Knee flexion is 5/5 bilaterally. -Knee extension is 5/5 bilaterally. Special testing: -Patellar grind test - negative. -Patella apprehension test - negative bilaterally. Neurovascular RLE: -Extremity grossly intact neurovascularly. -Sensation grossly intact to palpation. -No cyanosis of lower extremities. -Calves are soft, non-tender, non-edematous, non-erythematous and without increased warmth bilaterally. IMAGING: Right knee x-rays taken today 06/05/25 in the office. Formal radiology read on x-rays from today 06/05/25: COMPARISON: None TECHNIQUE: AP and PA standing views of the bilateral knees, lateral and sunrise views of the right knee are provided for interpretation. FINDINGS: There is no acute osseous lesion, fracture or subluxation. There is no joint effusion. No significant degenerative changes are identified. The overlying soft tissues appear normal. IMPRESSION: No acute osseous abnormality Previous imaging reports and images reviewed with formal radiology read by radiologist as follows: None IMPRESSION/PLAN: -Discussed Tx with rest/activity modification as needed, oral medications if no contraindications (acetaminophen/Tylenol, Rx or OTC NSAID, declines Rx NSAID), OTC topicals, ice (stop if worsening), advised can try heat but stop if worsening, discussed alternating ice/heat and formal PT. Avoid kneeling and squatting when possible. He does indicate there are ways he could minimize kneeling. Uses knee pads/board when he has to kneel. -Discussed he could try a [employer] knee brace and has 2 weeks to return if it doesn't help or causes worsening. Pt wants to try this brace and fitted with one. -Is going to use OTC topical diclofenac 3-4x/day x 2 weeks. -Risks of oral NSAIDs discussed including stomach/gastrointestinal irritation/ulcer/bleeding, renal impairment, elevated blood pressure and other cardiovascular problems such as increased risk of heart attack and stroke. Advised if taking NSAID long-term then monitoring (such as labs & BP) may be advised. -Discussed option of a short course of an oral steroid and Pt would like to try an oral steroid. Has taken an oral steroid in the past and tolerated fine. Discussed risks of steroids: elevated blood sugar, elevated blood pressure, swelling/fluid retention, weight gain, sleep disturbance, mood disturbance, decreased bone density/osteoporosis, stomach irritation/ulcers/bleeding, avascular necrosis of hip (impaired blood flow of hip), impaired immune function, adrenal suppression, cataracts and glaucoma. Discussed risks may be dependent on route/dose/duration. Advised to take oral steroid with food to minimize stomach irritation. Advised to not take any OTC or Rx NSAID medications like ibuprofen (Advil, Motrin) or naproxen (Aleve) while taking the oral steroid. Pt advised Tylenol (acetaminophen) is OK. -Declines formal PT at this time. HEP for patellar tendinopathy (source AAOS and additional exercises attached to visit) given. -F/U in 2-3 weeks. -Patient indicates understanding of impression/plan and agreeable to plan. 1. Acute pain of right knee predniSONE (DELTASONE) 20 MG tablet 2. Patellar tendinitis, right knee predniSONE (DELTASONE) 20 MG tablet FOLLOW-UP: 2-3 weeks Patrice Lim PA-C [1] Allergies Allergen Reactions Lipitor [Atorvastatin] GI Intolerance [2] Social History Socioeconomic History Marital status: Tobacco Use Smoking status: Some Days Current packs/day: 0.25 Average packs/day: 0.3 packs/day for 20.0 years (5.0 ttl pk-yrs) Types: Cigarettes Smokeless tobacco: Never Tobacco comments: A pack per week Vaping Use Vaping status: Never Used Substance and Sexual Activity Alcohol use: Yes Alcohol/week: 12.0 standard drinks of alcohol Types: 12 Cans of beer per week Drug use: Never Sexual activity: Yes Partners: Female Social History Narrative Merged History Encounter Social Drivers of Health Financial Resource Strain: Low Risk (12/17/2023) Overall Financial Resource Strain (CARDIA) Difficulty of Paying Living Expenses: Not very hard Food Insecurity: No Food Insecurity (12/17/2023) Hunger Vital Sign Worried About Running Out of Food in the Last Year: Never true Ran Out of Food in the Last Year: Never true Transportation Needs: No Transportation Needs (12/17/2023) PRAPARE - Transportation Lack of Transportation (Medical): No Lack of Transportation (Non-Medical): No Social Connections: Unknown (08/22/2021) Social Connection and Isolation Panel [NHANES] Frequency of Social Gatherings with Friends and Family: Once a week Housing Stability: Unknown (08/22/2021) Housing Stability Vital Sign Unable to Pay for Housing in the Last Year: No documented in this encounter [facility] 06-05-2025 Note 06/05/2025 Yeyo Ruggiero 1975 Chief Complaint Patient presents with Right Knee - Pain Historian(s): patient (seems to be a reliable historian) HISTORY OF PRESENT ILLNESS: Yeyo Ruggiero is a 49 y.o. male who presents today as a new patient for right knee pain. Onset of the right knee pain 2 weeks ago. Denies injury. Started at home and got worse with going up/down steps at work. 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 On further questioning, he kneels more on the right knee than the left knee. He also mentions he went for a motorcycle ride and may have jerked the knee/leg a bit when he went to put his foot down. Worse since onset. Pretty constant pain. Interferes with sleep. Max pain severity 8-9/10, 7/10 currently. Almost unbearable by the end of the day. Points to the tibial tuberosity area as the location of the pain. Bump in this area as well. He thinks he can force it into full flexion but pain with flexion. Seems like a little bit of swelling. Says it seems like when he walks there may be fluid in there. Denies redness and bruising. Says warmer compared to the left knee. Painful buckling when walking. Denies locking of the knee. Reports he's been limping. Denies use of assistive device to aid with ambulation. Has iced and elevated the knee. Ice helps while it's on the knee. Took 2 days off work to rest it which helped. No relief with a liniment (not sure drug/med). Said it made the knee hotter. Has a brace with stays (no patellar opening/hole) which helps with the buckling but puts pressure on the bump and makes the knee hurt worse. Has a compression sleeve that he's tried as well and compression makes the pain worse in the area of the bump. In the last 2 weeks was taking 400 mg of Motrin in the AM but hasn't taken any in the last couple of days. It helped at first but then stopped helping. Risk factors/other pertinent information: -Hx of R knee surgery? Denies -Hx of R knee trauma? He says he did something to it years ago but doesn't recall what, says he saw Dr. Almaraz. Per review of records, looks like he saw Dr. Almaraz for the LEFT knee. -Hx of gout. Records reviewed for today's visit: [facility] Hx intake form. CMP & CBC w/ diff and other labs from 12/17/23. Referred by: No ref. provider found PCP: Gustavo Hedrick, ROS NEGATIVE for the following: recent illness, fever, chills, change in weight, N/V/D, stomach/abdominal pain, black stool, bloody stool, difficulty breathing, chest pain, chest tightness, headache, and lightheadedness. ROS POSITIVE for the following: as noted in HPI. ROS as noted in the HPI as well. The following portions of the patient's history were reviewed and updated as appropriate: allergies, current medications, past medical history, past surgical history, social history, family history and problem list. PAST MEDICAL HISTORY: Past Medical History: Diagnosis Date Anxiety Arthritis 2019 Bursitis 2019 Contusion of left knee 11/25/2016 Elevated liver enzymes Gout 08/07/2020 Hypercholesteremia 01/15/2019 Hyperlipidemia Hypertension Lipoma of neck Obesity Sprain 2020 Tear of meniscus of knee Tendinitis of knee Tennis elbow ALLERGIES: Allergies[1] CURRENT MEDICATIONS: Patient's Medications New Prescriptions PREDNISONE (DELTASONE) 20 MG TABLET Take 60 mg (3 tabs) x 2 days, then 40 mg (2 tabs) x 2 days, then 20 mg (1 tab) x 2 days, then 10 mg (1/2 tab) x 2 days. Take with food. Don't take NSAID meds like ibuprofen or naproxen while taking this med. . Previous Medications C/SOURCHERRY/CELERY/GRAPE SEED (TART MORA ORAL) Take by mouth . EPINEPHRINE (EPIPEN 2-TOMMY) 0.3 MG/0.3 ML ATIN Inject 0.3 mL (0.3 mg total) into the mid-thigh as needed for severe allergic reaction. . LISINOPRIL-HYDROCHLOROTHIAZIDE (PRINZIDE,ZESTORETIC) 20-12.5 MG PER TABLET TAKE 1 TABLET DAILY SILDENAFIL (VIAGRA) 100 MG TABLET Take 1 (one) tablet (100 mg total) by mouth daily as needed for erectile dysfunction . TURMERIC ORAL Take by mouth . Modified Medications No medications on file Discontinued Medications BUPROPION (WELLBUTRIN XL) 300 MG 24 HR TABLET TAKE 1 TABLET DAILY INDOMETHACIN (INDOCIN) 50 MG CAPSULE Take 1 (one) capsule (50 mg total) by mouth daily as needed . SURGICAL HISTORY: Past Surgical History: Procedure Laterality Date SHOULDER SURGERY VASCULAR SURGERY VASECTOMY VESICOSTOMY SOCIAL HISTORY: Social History[2] VITALS: Vitals: 06/05/25 0856 BP: (!) 142/88 BP Location: Right arm Patient Position: Sitting BP Cuff Size: Adult Pulse: 82 Weight: 122.5 kg (270 lb) Height: 5' 11 PHYSICAL EXAM: General: Awake, alert, and in NAD. Obese body habitus. HEENT: Head is grossly atraumatic. Neck: Functional AROM. Respiratory: Non-labored breathing. No conversational dyspnea. Speaks in bobbi (more content not included)... [facility] 12-17-2023 History of Presen t illness Narrative Images from the original note were not included. HPI 48 yo here for wellness, doing dr. Ward's labs and mine today. Dx inflammatory polyarthropathy, medial epicondylitis bilateral, htn/depression/ED hld controlled and intolerant to lipitor . Contemplating plaquenil and methotrexate with rheumatology and getting ultrasound of liver and following up with her in mid-December. Declines vaccines. Vitals: 12/17/23 0656 BP: 132/86 Temp: 98.4 F (36.9 C) Pulse: 76 Resp: 16 PT WEIGHT Weight 12/17/2023 6:56 AM 261 lb 1.6 oz 12/11/2022 8:15 AM 259 lb 12/10/2021 10:33 AM 261 lb 08/22/2021 1:46 PM 245 lb 12.8 oz BP Readings from Last 4 Encounters: 12/17/23 132/86 12/11/22 130/80 12/10/21 128/80 08/22/21 136/80 Past Medical History: Diagnosis Date Anxiety Arthritis Contusion of left knee 11/25/2016 Elevated liver enzymes Gout 08/07/2020 Hypercholesteremia 01/15/2019 Hyperlipidemia Hypertension Lipoma of neck Obesity Past Surgical History: Procedure Laterality Date SHOULDER SURGERY VASCULAR SURGERY VASECTOMY VESICOSTOMY Social History Socioeconomic History Marital status: Tobacco Use Smoking status: Every Day Packs/day: 0.25 Years: 20.00 Additional pack years: 0.00 Total pack years: 5.00 Types: Cigarettes Smokeless tobacco: Never Tobacco comments: A pack per week Vaping Use Vaping Use: Never used Substance and Sexual Activity Alcohol use: Yes Drug use: Never Sexual activity: Yes Partners: Female Social History Narrative Merged History Encounter Social Determinants of Health Financial Resource Strain: Low Risk (12/17/2023) Overall Financial Resource Strain (CARDIA) Difficulty of Paying Living Expenses: Not very hard Food Insecurity: No Food Insecurity (12/17/2023) Hunger Vital Sign Worried About Running Out of Food in the Last Year: Never true Ran Out of Food in the Last Year: Never true Transportation Needs: No Transportation Needs (12/17/2023) PRAPARE - Transportation Lack of Transportation (Medical): No Lack of Transportation (Non-Medical): No Social Connections: Unknown (08/22/2021) Social Connection and Isolation Panel [NHANES] Frequency of Social Gatherings with Friends and Family: Once a week Housing Stability: Unknown (08/22/2021) Housing Stability Vital Sign Unable to Pay for Housing in the Last Year: No Family History Problem Relation Age of Onset Diabetes Father Current Outpatient Medications Medication Sig Dispense Refill buPROPion (WELLBUTRIN XL) 300 MG 24 hr tablet TAKE 1 TABLET DAILY 90 tablet 3 indomethacin (INDOCIN) 50 MG capsule Take 1 (one) capsule (50 mg total) by mouth daily as needed . EPINEPHrine (EpiPen 2-Tommy) 0.3 mg/0.3 mL AtIn Inject 0.3 mL (0.3 mg total) into the mid-thigh as needed for severe allergic reaction. . 1 each 1 lisinopriL-hydrochlorothiazide (PRINZIDE,ZESTORETIC) 20-12.5 mg per tablet Take 1 (one) tablet by mouth daily . 90 tablet 3 sildenafiL (VIAGRA) 100 MG tablet Take 1 (one) tablet (100 mg total) by mouth daily as needed for erectile dysfunction . 30 tablet 5 No current facility-administered medications for this visit. PHQ-9 Depression Screening - 12/17/23 0708 Over the last 2 weeks, how often have you been bothered by any of the following problems? (Retired)Little interest or pleasure in doing things -- Little interest or pleasure in doing things 0 (Retired)Feeling down, depressed, or hopeless -- Feeling down, depressed, or hopeless 0 PHQ-2 Total Score 0 Trouble falling or staying asleep, or sleeping too much -- Feeling tired or having little energy -- Poor appetite or overeating -- Feeling bad about yourself - or that you are a failure or have let yourself or your family down -- Trouble concentrating on things, such as reading the newspaper or watching television -- Moving or speaking so slowly that other people could have noticed. Or the opposite - being so fidgety or restless that you have been moving around a lot more than usual -- Thoughts that you would be better off , or of hurting yourself in some way -- PHQ-9 Total Score -- RETIRED - PHQ-9 Total Score -- If you checked off any problems, how difficult have these problems made it for you to do your work, take care of things at home, or get along with other people? -- PHQ-2 Total Score -- Goals None Review of Systems Constitutional: Negative. HENT: Negative. Eyes: Negative. Cardiovascular: Negative. Gastrointestinal: Negative. Endocrine: Negative. Genitourinary: Negative. Musculoskeletal: Positive for arthralgias (hands/knees/feet/hips). Neurological: Negative. Hematological: Negative. Psychiatric/Behavioral: Negative. Physical Exam Constitutional: Appearance: He is well-developed. He is obese. HENT: Head: Normocephalic and atraumatic. Right Ear: External ear normal. Left Ear: External ear normal. Nose: Nose normal. Eyes: Conjunctiva/sclera: Conjunctivae normal. Pupils: Pupils are equal, round, and reactive to light. Cardiovascular: Rate and Rhythm: Normal rate and regular rhythm. Heart sounds: Normal heart sounds. No murmur heard. Pulmonary: Effort: Pulmonary effort is normal. Breath sounds: Normal breath sounds. No wheezing. Chest: Chest wall: No tenderness. Abdominal: General: Bowel sounds are normal. Palpations: Abdomen is soft. There is no mass. Tenderness: There is no abdominal tenderness. There is no guarding or rebound. Musculoskeletal: General: No tenderness or deformity. Cervical back: Normal range of motion and neck supple. Lymphadenopathy: Cervical: No cervical adenopathy. Skin: General: Skin is warm and dry. Findings: No rash. Neurological: Mental Status: He is alert and oriented to person, place, and time. Deep Tendon Reflexes: Reflexes are normal and symmetric. Psychiatric: Behavior: Behavior normal. Thought Content: Thought content normal. Judgment: Judgment normal. Diagnoses and all orders for this visit: Diagnoses and all orders for this visit: Routine general medical examination at a health care facility - Comprehensive Metabolic Panel; Future - Lipid Panel; Future - PSA, Screen; Future Hypertension, essential - lisinopriL-hydrochlorothiazide (PRINZIDE,ZESTORETIC) 20-12.5 mg per tablet; Take 1 (one) tablet by mouth daily . Other orders - EPINEPHrine (EpiPen 2-Tommy) 0.3 mg/0.3 mL AtIn; Inject 0.3 mL (0.3 mg total) into the mid-thigh as needed for severe allergic reaction. . - sildenafiL (VIAGRA) 100 MG tablet; Take 1 (one) tablet (100 mg total) by mouth daily as needed for erectile dysfunction . Anticipitory guidance for age. For any new medications prescribed today, patient was educated about indications for the medication, how to take the medication and potential side effects of the medications. 01/23/2019 4:00 PM 08/07/2020 7:00 AM 08/22/2021 1:00 PM 12/11/2022 8:19 AM 12/17/2023 7:08 AM Depression Screening Little interest or pleasure in doing things 0 0 0 0 0 Feeling down, depressed, or hopeless 1 0 0 0 0 PHQ-2 Total Score 1 0 0 0 0 Trouble falling or staying asleep, or sleeping too much 1 0 Feeling tired or having little energy 0 0 Poor appetite or overeating 0 0 Feeling bad about yourself - or that you are a failure or have let yourself or your family down 1 0 Trouble concentrating on things, such as reading the newspaper or watching television 0 0 Moving or speaking so slowly that other people could have noticed. Or the opposite - being so fidgety or restless that you have been moving around a lot more than usual 0 0 Thoughts that you would be better off , or of hurting yourself in some way 0 0 PHQ-9 Total Score 3 0 If you checked off any problems, how difficult have these problems made it for you to do your work, take care of things at home, or get along with other people? Not difficult at all Not difficult at all documented in this encounter [facility] 05-29-2023 Discharge summary Note Date/Time May 29, 2023 5:30pm [facility] Medical Records Department [address] [place] [address] Emergency Department Summary 05/29/23 MR#: [id number] Acct: [id number] Name: YEYO RUGGIERO Rep #:[id number] : 1975 47 From: Joey Shepard MD PCP: Dr. Gustavo Hedrick MD Status:REG ER Location: ED ADDENDUM by Dr. Ta Rodríguez DO on 05/30/23 at 1042 Patient signed out to me pending repeat alcohol level and crisis evaluation. Patient is now sober and his alcohol is 33. He denies any suicidal ideations. Police did take his weapon from his home. Crisis and I agreed patient to be safety planned for home. Family is in agreement. Patient discharged in stable condition 05/30/23 1042<Electronically signed by Ta Rodríguez DO> Cosigner Signature (if applicable): cc: Dr. Gustavo Hedrick MD ~* Signed ADDENDUM by Dr. Kevin Villagran MD on 05/30/23 at 0752 Patient has been watched overnight. There have been no issues. He has been brought in his medicines for blood pressure and Wellbutrin and vitamins. These are brought in in their original containers. We will get him the meds that are due. He is pending repeat alcohol level and evaluation by crisis. 05/30/23 0752<Electronically signed by Kevin Villagran MD> Cosigner Signature (if applicable): cc: Dr. Gustavo Hedrick MD ~* Signed HPI HPI - Psych History of Present Illness Chief Complaint: Suicidal Detail of Chief Complaint: Patient openly admits he had about 12 beers today. 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 Denies any prior suicide attempts. Denies any prior mental health admissions. States that he openly admits that he had 12 beers today. Said he got mouthy with his . They got an argument. He threatened to harm himself. She called the police. I did speak to our police patrol lieutenant who spoke with the police today. The patient left out the part that he had a loaded gun pointed at his own head. Patient was brought in by police and pink slipped. Prior similar symptoms: No Recent Illness/Hospitalization: No PFSH PFS Medical History Anxiety HTN (hypertension) Home Medications bupropion HCl 300 mg 24 hr tablet, extended release 300 mg PO DAILY 05/29/23 [History Last Taken Unknown] lisinopril 20 mg-hydrochlorothiazide 12.5 mg tablet 1 tab PO DAILY 05/29/23 [History Last Taken 05/29/23] meloxicam .ROUTE 05/29/23 [History Last Taken 05/29/23] Allergy/AdvReac Type Severity Reaction Status Date / Time No Known Allergies Allergy Verified 05/29/23 17:11 Social History Smoking Status: Current every day smoker tobacco type: cigarettes ROS ROS ED ROS Narrative Denies recent illness. Review of Systems ROS Unobtainable: Denies due to encephalopathy Constitutional Constitutional ED: Denies chills or fever(s) Eyes Eyes: Denies blurry vision ENT ENT ED: Denies ear pain Cardiovascular Cardiovascular: Denies chest pain Respiratory/Chest Respiratory/Chest: Denies cough Gastrointestinal Gastrointestinal: Denies abdominal pain Genitourinary Genitourinary ED: Denies dysuria Musculoskeletal Musculoskeletal: Denies arthralgias Integumentary Denies abscess Neurologic Neurologic: Denies headache(s) Endocrine Endocrinology: Denies polydipsia Hematologic/Lymphatic Hematologic/Lymphatic: Denies easy bleeding Allergic/Immunologic Allergic/Immunologic ED: Denies mouth swelling EXAM Physical Exam Narrative Exam Narrative: 47-year-old male vital signs stable afebrile. He does not look septic or toxic. He is in no distress. Most likely is intoxicated. H EENT exam unremarkable. Neck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 signs and nursing note reviewed. Constitutional: Appearance: Normal appearance. He is well-developed. HENT: Head: Normocephalic and atraumatic. Right Ear: Tympanic membrane, ear canal and external ear normal. Left Ear: Tympanic membrane, ear canal and external ear normal. Mouth/Throat: Mouth: Mucous membranes are dry. Comments: Small hole inside lip/chin border mild cellulitis no pus Eyes: Pupils: Pupils are equal, round, and reactive to light. Neck: Musculoskeletal: Normal range of motion and neck supple. Cardiovascular: Rate and Rhythm: Normal rate and regular rhythm. Heart sounds: Normal heart sounds. No murmur. Pulmonary: Effort: Pulmonary effort is normal. Breath sounds: Normal breath sounds. No wheezing. Chest: Chest wall: No tenderness. Abdominal: General: Bowel sounds are normal. Palpations: Abdomen is soft. There is no mass. Tenderness: There is no tenderness. There is no guarding or rebound. Musculoskeletal: General: No tenderness or deformity. Lymphadenopathy: Cervical: No cervical adenopathy. Skin: General: Skin is warm and dry. Findings: No rash. Neurological: Mental Status: He is alert and oriented to person, place, and time. Mental status is at baseline. Deep Tendon Reflexes: Reflexes are normal and symmetric. Psychiatric: Behavior: Behavior normal. Thought Content: Thought content normal. Judgment: Judgment normal. There are no diagnoses linked to this encounter. Diagnoses and all orders for this visit: Strain of neck muscle, initial encounter after [facility]va/with etoh .... no etoh advised, rom neck daily Will recheck bp on of this month with me and may need to add amlodipine. Cellulitis of lip - penicillin v potassium (VEETID) 500 MG tablet; Take 1 (one) tablet (500 mg total) by mouth 4 (four) times a day . Other orders - sildenafil (VIAGRA) 100 MG tablet; Take 1 (one) tablet (100 mg total) by mouth daily as needed for erectile dysfunction . For any new medications prescribed today, patient was educated about indications for the medication, how to take the medication and potential side effects of the medications. documented in this encounter* Christal Baker CMA - 09/22/2019 10:17 AM EST LABS COLLECTED FROM LEFT ARM. PATIENT TOLERATED WELL * Gustavo Hedrick DO - 09/22/2019 9:30 AM EST Subjective Patient ID: Yeyo Ruggiero is a 44 y.o. male. Intolerant to statins.lipitor... Yearly wellness, recheck bp, cmp/lipids/psa. Hypertension This is a chronic problem. The current episode started more than 1 month ago. The problem is controlled. Pertinent negatives include no anxiety, blurred vision, chest pain, headaches, neck pain, orthopnea, palpitations, peripheral edema, PND, shortness of breath or sweats. There are no associated agents to hypertension. Risk factors for coronary artery disease include male gender, obesity and dyslipidemia. Past treatments include diuretics and KIANA inhibitors. The current treatment provides significant improvement. There are no compliance problems. There is no history of angina, kidney disease, CVA, heart failure, left ventricular hypertrophy, PVD or retinopathy. Blood sugar prediabetic 105 07/2018 dpp offered. Also started on lipitor 10mg daily ldl cholesterolwas 130....triglycerides were 122.couldn't take lipitor due to upset stomach and diarrhea. Anxiety, and bp needs treated not treated for years,,,,last seen 4 years ago.... Tolerating wellbutrin still anxious Life stresses brings on anxiety, marriage, kids, work. Tolerating lisinopril but bp staying up. Vitals: 09/22/19 0928 BP: 139/87 Temp: 98.2 F (36.8 C) Pulse: 87 Resp: 16 BP Readings from Last 4 Encounters: 09/22/19 139/87 09/01/19 (!) 148/96 08/19/19 (!) 150/89 01/23/19 138/80 PT WEIGHT Weight 09/22/2019 250 lb 09/01/2019 250 lb 08/19/2019 270 lb 01/23/2019 270 lb Current Outpatient Medications Medication Sig Dispense Refill buPROPion (WELLBUTRIN XL) 300 MG 24 hr tablet Take 1 (one) tablet (300 mg total) by mouth daily . 90 tablet 3 esomeprazole (NEXIUM) 20 MG capsule Take 20 mg by mouth every morning before breakfast. lisinopril-hydrochlorothiazide (PRINZIDE,ZESTORETIC) 20-12.5 mg per tablet Take 1 (one) tablet by mouth daily . 90 tablet 3 penicillin v potassium (VEETID) 500 MG tablet Take 1 (one) tablet (500 mg total) by mouth 4 (four) times a day . 40 tablet 0 sildenafil (VIAGRA) 100 MG tablet Take 1 (one) tablet (100 mg total) by mouth daily as needed for erectile dysfunction . 10 tablet 10 atorvastatin (LIPITOR) 10 MG tablet Take 1 (one) tablet (10 mg total) by mouth daily. (Patient not taking: Reported on 09/01/2019 .) 90 tablet 3 No current facility-administered medications for this visit. Family History Problem Relation Age of Onset Diabetes Father Past Medical History: Diagnosis Date Anxiety Arthritis Elevated liver enzymes Hyperlipidemia Hypertension Lipoma of neck Obesity Past Surgical History: Procedure Laterality Date SHOULDER SURGERY VASCULAR SURGERY VASECTOMY VESICOSTOMY Social History Socioeconomic History Marital status: Spouse name: Not on file Number of children: Not on file Years of education: Not on file Highest education level: Not on file Occupational History Not on file Social Needs Financial resource strain: Not on file Food insecurity Worry: Never true Inability: Never true Transportation needs Medical: Not on file Non-medical: Not on file Tobacco Use Smoking status: Current Every Day Smoker Packs/day: 1.00 Years: 20.00 Pack years: 20.00 Types: Cigarettes Smokeless tobacco: Never Used Tobacco comment: less than pack per week Substance and Sexual Activity Alcohol use: Yes Comment: socially Drug use: Never Sexual activity: Yes Partners: Female Lifestyle Physical activity Days per week: Not on file Minutes per session: Not on file Stress: Not on file Relationships Social connections Talks on phone: Not on file Gets together: Once a week Attends holiness service: Not on file Active member of club or organization: Not on file Attends meetings of clubs or organizations: Not on file Relationship status: Not on file Other Topics Concern Not on file Social History Narrative Merged History Encounter Review of Systems Constitutional: Negative for chills, fever and unexpected weight change. HENT: Negative for ear pain, mouth sores, sinus pain, sore throat and trouble swallowing. Eyes: Negative for blurred vision, photophobia and pain. Respiratory: Negative for cough and shortness of breath. Cardiovascular: Negative for chest pain, palpitations, orthopnea, leg swelling and PND. Gastrointestinal: Negative for abdominal pain, blood in stool, constipation and nausea. Endocrine: Negative for polydipsia and polyuria. Genitourinary: Negative for dysuria and frequency. Musculoskeletal: Negative for back pain, gait problem and neck pain. Skin: Negative for rash. Allergic/Immunologic: Negative for immunocompromised state. Neurological: Negative for dizziness, weakness and headaches. Hematological: Negative for adenopathy. Does not bruise/bleed easily. Psychiatric/Behavioral: Negative for dysphoric mood and hallucinations. The patient is nervous/anxious (chronic, not suicidal...). Objective Physical Exam Constitutional: He is oriented to person, place, and time. He appears well- developed and well-nourished. HENT: Head: Normocephalic and atraumatic. Eyes: Pupils are equal, round, and reactive to light. EOM are normal. Neck: Normal range of motion. Neck supple. Cardiovascular: Normal rate, regular rhythm and normal heart sounds. No murmur heard. Pulmonary/Chest: Effort normal and breath sounds normal. He has no wheezes. He exhibits no tenderness. Abdominal: Soft. Bowel sounds are normal. He exhibits no mass. There is no abdominal tenderness. There is no rebound and no guarding. Musculoskeletal: General: No tenderness, deformity or edema. Lymphadenopathy: He has no cervical adenopathy. Neurological: He is alert and oriented to person, place, and time. He has normal reflexes. Skin: Skin is dry. No rash noted. Psychiatric: He has a normal mood and affect. His behavior is normal. Judgment and thought content normal. Assessment/Plan: Diagnoses and all orders for this visit: Diagnoses and all orders for this visit: Routine general medical examination at a health care facility Tylenol es 2 bid for pain going [facility]. - Comprehensive Metabolic Panel; Future - Lipid Panel; Future - PSA, Screen; Future Anxiety cont same stable - buPROPion (WELLBUTRIN XL) 300 MG 24 hr tablet; Take 1 (one) tablet (300 mg total) by mouth daily . Hypertension, essential cont same stable - lisinopril-hydrochlorothiazide (PRINZIDE,ZESTORETIC) 20-12.5 mg per tablet; Take 1 (one) tablet by mouth daily . documented in this encounter* Gustavo Hedrick DO - 10/23/2020 4:37 PM EST HPI Here for wellness/labs. Arthritic pip/dip joints fingers and left knee. Vitals: 10/23/20 1624 BP: 136/88 Temp: 98.1 F (36.7 C) Pulse: (!) 100 Resp: 16 PT WEIGHT Weight 10/23/2020 245 lb 08/07/2020 242 lb 09/22/2019 250 lb 09/01/2019 250 lb BP Readings from Last 4 Encounters: 10/23/20 136/88 08/07/20 138/82 09/22/19 139/87 09/01/19 (!) 148/96 Past Medical History: Diagnosis Date Anxiety Arthritis Elevated liver enzymes Hyperlipidemia Hypertension Lipoma of neck Obesity Past Surgical History: Procedure Laterality Date SHOULDER SURGERY VASCULAR SURGERY VASECTOMY VESICOSTOMY Social History Socioeconomic History Marital status: Spouse name: Not on file Number of children: Not on file Years of education: Not on file Highest education level: Not on file Occupational History Not on file Social Needs Financial resource strain: Not hard at all Food insecurity Worry: Never true Inability: Never true Transportation needs Medical: No Non-medical: No Tobacco Use Smoking status: Current Every Day Smoker Packs/day: 1.00 Years: 20.00 Pack years: 20.00 Types: Cigarettes Smokeless tobacco: Never Used Tobacco comment: A pack per week Substance and Sexual Activity Alcohol use: Yes Frequency: Monthly or less Drinks per session: 1 or 2 Binge frequency: Never Drug use: Never Sexual activity: Yes Partners: Female Lifestyle Physical activity Days per week: Not on file Minutes per session: Not on file Stress: Not on file Relationships Social connections Talks on phone: Not on file Gets together: Once a week Attends holiness service: Not on file Active member of club or organization: Not on file Attends meetings of clubs or organizations: Not on file Relationship status: Not on file Other Topics Concern Not on file Social History Narrative Merged History Encounter Family History Problem Relation Age of Onset Diabetes Father Current Outpatient Medications Medication Sig Dispense Refill buPROPion (WELLBUTRIN XL) 300 MG 24 hr tablet Take 1 (one) tablet (300 mg total) by mouth daily . 90 tablet 3 esomeprazole (NEXIUM) 20 MG capsule Take 20 mg by mouth every morning before breakfast. indomethacin (INDOCIN) 50 MG capsule Take 1 (one) capsule (50 mg total) by mouth 2 (two) times a day with meals . (Patient taking differently: Take 50 mg by mouth 2 (two) times a day as needed .) 20 capsule 2 lisinopriL-hydrochlorothiazide (PRINZIDE,ZESTORETIC) 20-12.5 mg per tablet TAKE 1 TABLET DAILY 90 tablet 3 sildenafiL (VIAGRA) 100 MG tablet Take 100 mg by mouth daily as needed for erectile dysfunction . No current facility-administered medications for this visit. PHQ-9 Depression Screening No documentation. Goals None Review of Systems Constitutional: Negative for chills and fever. HENT: Negative for facial swelling and mouth sores. Eyes: Negative for pain and visual disturbance. Respiratory: Negative for cough and shortness of breath. Cardiovascular: Negative for chest pain. Gastrointestinal: Negative for abdominal pain. Endocrine: Negative for polydipsia. Genitourinary: Negative for frequency. Musculoskeletal: Positive for arthralgias and back pain. Neurological: Negative. Hematological: Negative. Psychiatric/Behavioral: Negative. Physical Exam Vitals signs and nursing note reviewed. Constitutional: General: He is not in acute distress. Appearance: He is well-developed. HENT: Head: Normocephalic and atraumatic. Right Ear: Tympanic membrane, ear canal and external ear normal. Left Ear: Tympanic membrane, ear canal and external ear normal. Nose: Nose normal. Mouth/Throat: Mouth: Mucous membranes are moist. Eyes: Extraocular Movements: Extraocular movements intact. Pupils: Pupils are equal, round, and reactive to light. Neck: Musculoskeletal: Normal range of motion and neck supple. Cardiovascular: Rate and Rhythm: Normal rate and regular rhythm. Heart sounds: Normal heart sounds. No murmur. Pulmonary: Effort: Pulmonary effort is normal. Breath sounds: Normal breath sounds. No wheezing. Chest: Chest wall: No tenderness. Abdominal: General: Bowel sounds are normal. Palpations: Abdomen is soft. There is no mass. Tenderness: There is no abdominal tenderness. There is no guarding or rebound. Musculoskeletal: General: Tenderness (arthritic pip's couple fingers left/right hands and left knee good motion) present. No deformity. Right lower leg: No edema. Left lower leg: No edema. Lymphadenopathy: Cervical: No cervical adenopathy. Skin: General: Skin is warm and dry. Findings: No rash. Neurological: Mental Status: He is alert and oriented to person, place, and time. Mental status is at baseline. Deep Tendon Reflexes: Reflexes are normal and symmetric. Psychiatric: Behavior: Behavior normal. Thought Content: Thought content normal. Judgment: Judgment normal. There are no diagnoses linked to this encounter. Diagnoses and all orders for this visit: Routine general medical examination at a health care facility try cbd lotion for left knee and arthritic joints on hands. - Comprehensive Metabolic Panel; Future - Lipid Panel; Future - PSA, Screen; Future Other orders - sildenafiL (VIAGRA) 100 MG tablet; Take 1 (one) tablet (100 mg total) by mouth daily as needed for erectile dysfunction . For any new medications prescribed today, patient was educated about indications for the medication, how to take the medication and potential side effects of the medications. * Noy Jurado LPN - 10/23/2020 4:30 PM EST Precharting completed as below: Reason for visit-ANNUAL EXAM: Arthritis to b/l hands and left knee; request for pain medication Allergies-NKDA Meds-reviewed/ no changes Medical/Surgical History-no changes PHQ9 and/or GAD7-HOLD Health Maintenance-up to date documented in this encounter* Georgina Kolb, JSOEE - 08/07/2020 7:00 AM EDT Subjective Patient ID: Yeyo Ruggiero is a 44 y.o. male. Last visit was 09/22/2019 for wellness visit. HPI Pt presents today for a flare up of gout. Pt was working out and taking protein drinks. Feels this set off the Gout. Gout started left great toe, then took left over indomethacin and it improved. NowPain has moved to left wrist and up into left elbow. Wrist rotation makes the pain worse. Taking Tylenol for pain with some improvement. Denies numbness , has occasional tingling. No associated symptoms. The following portions of the patient's history were reviewed and updated as appropriate: allergies, current medications, past family history, past medical history, past social history, past surgicalhistory and problem list. PACU Vitals 08/07/20 0731 BP: 138/82 Pulse: Resp: Temp: SpO2: PainSc: PainLoc: Patient's Medications New Prescriptions INDOMETHACIN (INDOCIN) 50 MG CAPSULE Take 1 (one) capsule (50 mg total) by mouth 2 (two) times a day with meals . Previous Medications BUPROPION (WELLBUTRIN XL) 300 MG 24 HR TABLET Take 1 (one) tablet (300 mg total) by mouth daily . ESOMEPRAZOLE (NEXIUM) 20 MG CAPSULE Take 20 mg by mouth every morning before breakfast. LISINOPRIL-HYDROCHLOROTHIAZIDE (PRINZIDE,ZESTORETIC) 20-12.5 MG PER TABLET Take 1 (one) tablet by mouth daily . SILDENAFIL (VIAGRA) 100 MG TABLET Take 1 (one) tablet (100 mg total) by mouth daily as needed for erectile dysfunction . Modified Medications No medications on file Discontinued Medications No medications on file Review of Systems Constitutional: Positive for activity change. Negative for chills, fatigue and fever. HENT: Negative for congestion. Respiratory: Negative for chest tightness and shortness of breath. Cardiovascular: Negative for chest pain. Gastrointestinal: Negative for abdominal pain. Genitourinary: Negative for dysuria. Musculoskeletal: Positive for arthralgias and joint swelling. Negative for gait problem. Neurological: Negative for dizziness, light-headedness and headaches. Psychiatric/Behavioral: Negative for sleep disturbance. Physical Exam Vitals signs and nursing note reviewed. Constitutional: Appearance: Normal appearance. HENT: Head: Normocephalic and atraumatic. Cardiovascular: Rate and Rhythm: Normal rate and regular rhythm. Pulses: Normal pulses. Heart sounds: Normal heart sounds. Pulmonary: Effort: Pulmonary effort is normal. Breath sounds: Normal breath sounds. Musculoskeletal: General: Swelling and tenderness present. Comments: Increased pain with left wrist ROM, flexion and rotation. Increased pain in left lateral elbow with rotation of wrist. Skin: General: Skin is warm. Neurological: Mental Status: He is alert and oriented to person, place, and time. Psychiatric: Mood and Affect: Mood normal. Behavior: Behavior normal. Thought Content: Thought content normal. Judgment: Judgment normal. Assessment/Plan: Gout Acute problem not controlled Ordered Indomethicin 50 mg 1 po BID with meals x 10 days #20. Pt to continue tylenol prn for additional pain. Pt agrees to all office if not resolving. Pt has a annual wellness apt with Dr Hedrick in August. Orders Placed This Encounter indomethacin (INDOCIN) 50 MG capsule Sig: Take 1 (one) capsule (50 mg total) by mouth 2 (two) times a day with meals . Dispense: 20 capsule Refill: 2 ICD-10-CM ICD-9-CM 1. Other secondary acute gout of left wrist M10.432 274.01 indomethacin (INDOCIN) 50 MG capsule Pt has apt with Dr Hedrick for annual wellness in August. Pt has agreed to call office if pain not resolved. Electronically Signed by: Georgina Kolb CNP 08/07/20 ,7:35 AM Depression Screening 01/23/2019 08/07/2020 Little interest or pleasure in doing things 0 0 Feeling down, depressed, or hopeless 1 0 PHQ-2 Total Score 1 0 Trouble falling or staying asleep, or sleeping too much 1 0 Feeling tired or having little energy 0 0 Poor appetite or overeating 0 0 Feeling bad about yourself - or that you are a failure or have let yourself or your family down 1 0 Trouble concentrating on things, such as reading the newspaper or watching television 0 0 Moving or speaking so slowly that other people could have noticed. Or the opposite - being so fidgety or restless that you have been moving around a lot more than usual 0 0 Thoughts that you would be better off , or of hurting yourself in some way 0 0 PHQ-9 Total Score 3 0 If you checked off any problems, how difficult have these problems made it for you to do your work,take care of things at home, or get along with other people? Not difficult at all Not difficult at all documented in this encounter Instructions * Patient Instructions* Gustavo Hedrick, - 09/01/2019 2:55 PM EST Neck Strain or Sprain: Rehab Exercises Introduction Here are some examples of exercises for you to try. The exercises may be suggested for a condition or for rehabilitation. Start each exercise slowly. Ease off the exercises if you start to have pain. You will be told when to start these exercises and which ones will work best for you. How to do the exercises Neck rotation 1. Sit in a firm chair, or stand up straight. 2. Keeping your chin level, turn your head to the right, and hold for 15 to 30 seconds. 3. Turn your head to the left and hold for 15 to 30 seconds. 4. Repeat 2 to 4 times to each side. Neck stretches 1. Look straight ahead, and tip your right ear to your right shoulder. Do not let your left shoulder rise up as you tip your head to the right. 2. Hold for 15 to 30 seconds. 3. Tilt your head to the left. Do not let your right shoulder rise up as you tip your head to the left. 4. Hold for 15 to 30 seconds. 5. Repeat 2 to 4 times to each side. Forward neck flexion 1. Sit in a firm chair, or stand up straight. 2. Bend your head forward. 3. Hold for 15 to 30 seconds. 4. Repeat 2 to 4 times. Lateral (side) bend strengthening 1. With your right hand, place your first two fingers on your right oriental orthodox. 2. Start to bend your head to the side while using gentle pressure from your fingers to keep your head from bending. 3. Hold for about 6 seconds. 4. Repeat 8 to 12 times. 5. Switch hands and repeat the same exercise on your left side. Forward bend strengthening 1. Place your first two fingers of either hand on your forehead. 2. Start to bend your head forward while using gentle pressure from your fingers to keep your head from bending. 3. Hold for about 6 seconds. 4. Repeat 8 to 12 times. Neutral position strengthening 1. Using one hand, place your fingertips on the back of your head at the top of your neck. 2. Start to bend your head backward while using gentle pressure from your fingers to keep your headfrom bending. 3. Hold for about 6 seconds. 4. Repeat 8 to 12 times. Chin tuck 1. Lie on the floor with a rolled-up towel under your neck. Your head should be touching the floor. 2. Slowly bring your chin toward your chest. 3. Hold for a count of 6, and then relax for up to 10 seconds. 4. Repeat 8 to 12 times. Follow-up care is a hewitt part of your treatment and safety. Be sure to make and go to all appointments, and call your doctor if you are having problems. It's also a good idea to know your test resultsand keep a list of the medicines you take. Where can you learn more? Log into your personal health record on https://[employer].9You and enter M679 in the Education box to learn more about Neck Strain or Sprain: Rehab Exercises. Current as of: July 14, 2018 Content Version: 12.1 0332-4404 [employer]. Care instructions adapted under license by your healthcare professional. If you have questions about a medical condition or this instruction, always ask your healthcare professional. [employer] disclaims any warranty or liability for your use of this information. documented in this encounter* Patient Instructions* Gustavo Hedrick DO - 09/22/2019 10:06 AM EST Well Visit, Ages 18 to 50: Care Instructions Your Care Instructions Physical exams can help you stay healthy. Your doctor has checked your overall health and may have suggested ways to take good care of yourself. He or she also may have recommended tests. At home, you can help prevent illness with healthy eating, regular exercise, and other steps. Follow-up care is a hewitt part of your treatment and safety. Be sure to make and go to all appointments, and call your doctor if you are having problems. It's also a good idea to know your test resultsand keep a list of the medicines you take. How can you care for yourself at home? Reach and stay at a healthy weight. This will lower your risk for many problems, such as obesity, diabetes, heart disease, and high blood pressure. Get at least 30 minutes of physical activity on most days of the week. Walking is a good choice. You also may want to do other activities, such as running, swimming, cycling, or playing tennis or team sports. Discuss any changes in your exercise program with your doctor. Do not smoke or allow others to smoke around you. If you need help quitting, talk to your doctor about stop-smoking programs and medicines. These can increase your chances of quitting for good. Talk to your doctor about whether you have any risk factors for sexually transmitted infections (STIs). Having one sex partner (who does not have STIs and does not have sex with anyone else) is a good way to avoid these infections. Use control if you do not want to have children at this time. Talk with your doctor about thechoices available and what might be best for you. Protect your skin from too much sun. When you're outdoors from 10 a.m. to 4 p.m., stay in the shadeor cover up with clothing and a hat with a wide brim. Wear sunglasses that block UV rays. Even whenit's cloudy, put broad-spectrum sunscreen (SPF 30 or higher) on any exposed skin. See a dentist one or two times a year for checkups and to have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 materially change the coding, format and clinical context of patient data. In addition, data may be omitted in some cases. CLINICAL DECISIONS SHOULD BE BASED ON THE PRIMARY CLINICAL RECORDS. [facility]. provides no warranty or guarantee of the accuracy or completeness of information in this document.
[2025-07-13] MEDS: Smz/Tmp Ds Tablet 1 TABLET PO (05:19)
[2025-07-13 05:20] VITALS: BP 160/100; PULSE 100; RESP 16; TEMP 36.9; O2SAT 99
== END 2025-07-13 05:21 | disposition home or self-care (01) ==
PROVIDERS: Emergency Provider Emergency Medicine; PCP Family Medicine; Visit Provider Emergency Medicine
DX: L25.9 Unspecified contact dermatitis, unspecified cause (principal); I10 Essential (primary) hypertension; F17.210 Nicotine dependence, cigarettes, uncomplicated; Z79.899 Other long term (current) drug therapy
CPT/HCPCS: 99283